=== PATIENT | female | born 1965 | race Caucasian/White ===

== ENCOUNTER → 2017-11-27 | Outpatient (CLI) | payer OTHER | END | disposition home or self-care (01) | LOC: RAH 12:50 | PROVIDERS: ATTEND Internal Medicine | DX: Z01.818 Encounter for other preprocedural examination (principal); I10 Essential (primary) hypertension; E78.5 Hyperlipidemia, unspecified; J98.6 Disorders of diaphragm | CPT/HCPCS: 71046 ==

== ENCOUNTER → 2018-02-16 | Outpatient (CLI) | payer OTHER | END | disposition home or self-care (01) | LOC: RAH 14:40 | PROVIDERS: ATTEND Internal Medicine | DX: N60.01 Solitary cyst of right breast (principal); N60.02 Solitary cyst of left breast | CPT/HCPCS: 77066 ==

== ENCOUNTER → 2018-06-30 | Outpatient (CLI) | payer OTHER | END | disposition home or self-care (01) | LOC: RAH 07:54 | PROVIDERS: ATTEND Internal Medicine | DX: K76.0 Fatty (change of) liver, not elsewhere classified (principal); R16.0 Hepatomegaly, not elsewhere classified | CPT/HCPCS: 76700 ==

== ENCOUNTER 2018-07-09 02:17 | Emergency (ER) | payer OTHER ==
[2018-07-09 03:22] LABS: BASOPHILS % (AUTO) 0.9 % (0.0-5.0); HEMATOCRIT 42.6 % (36-48); LYMPHOCYTES % (AUTO) 16.3 % (21.0-51.0); MEAN CORPUSCULAR HEMOGLOBIN 19.4 pg (27.0-33.0); MEAN CORPUSCULAR HGB CONC 31.5 g/dL (32.0-36.0); MEAN CORPUSCULAR VOLUME 61.4 fL (79-99); MONOCYTES % (AUTO) 3.9 % (3.0-13.0); NEUTROPHILS % (AUTO) 77.9 % (40.0-77.0); PLATELET COUNT (AUTO) 238 K/uL (130-400); RED BLOOD CELL COUNT(AUTO) 6.93 MIL/uL (4.00-5.50); RED CELL DISTRIBUTION WIDTH 18.7 % (11.0-15.5)
[2018-07-09 03:23] LABS: APPEARANCE,URINE CLEAR (CLEAR); BILIRUBIN,URINE NEGATIVE (NEGATIVE); COLOR,URINE YELLOW (YELLOW); GLUCOSE, URINE (UA) NEGATIVE (NEGATIVE); KETONES,URINE NEGATIVE (NEGATIVE); LEUKOCYTE ESTERASE ,URINE NEGATIVE (NEGATIVE); NITRATE,URINE NEGATIVE (NEGATIVE); OCCULT BLOOD,URINE NEGATIVE (NEGATIVE); PROTEIN,URINE 30 mg/dL (NEGATIVE); UROBILINOGEN,URINE 0.2 mg/dL (0.2-1.0)
[2018-07-09 03:27] LABS: BACTERIA,URINE None Seen /HPF (None Seen); CALCIUM OXALATE CRYSTALS,UR Few /LPF (None Seen); RBC,URINE None Seen /HPF (0-1); SQUAMOUS EPITHELIAL CELL,UR Few /HPF (0-2); WBC,URINE None Seen /HPF (0-1)
[2018-07-09 03:30] LABS: CREATININE 0.9 mg/dL (0.5-1.5); POTASSIUM 3.9 mmol/L (3.5-5.1)
[2018-07-09 03:34] LABS: ALBUMIN 4.1 g/dL (3.5-5.0); BILIRUBIN,TOTAL 0.7 mg/dL (0.2-1.0); TOTAL PROTEIN, SERUM 8.2 g/dL (6.0-8.3)
[2018-07-09 03:41] LABS: INR 1.02 (0.85-1.15); PARTIAL THROMBOPLASTIN TIME 37.7 SEC (26.3-35.5); PROTHROMBIN TIME 10.7 SEC (9.6-11.6)
[2018-07-09] MEDS ORDERED: KETOROLAC TROMETHAMINE 30MG/ML ONE (04:13)
== END 2018-07-09 06:14 | disposition home or self-care (01) ==
LOC: EDH 02:17
DX: K29.00 Acute gastritis without bleeding (principal); I10 Essential (primary) hypertension; E78.5 Hyperlipidemia, unspecified; F32.9 Major depressive disorder, single episode, unspecified; Z98.51 Tubal ligation status; Z98.890 Other specified postprocedural states; Z88.8 Allergy status to other drugs, medicaments and biological substances
CPT/HCPCS: 36415; 71045; 74176; 80053; 81001; 82150; 82550; 85025; 85610; 85730; 93005; 96374; 99285; J1885

== ENCOUNTER 2019-05-04 08:31 | Inpatient (IN) | payer OTHER ==
[~2019-05-04] VITALS: Ht 162.6 cm; Wt 83.6 kg
[2019-05-04] MEDS ORDERED: ONDANSETRON HCL 4 MG/2 ML VIAL ONE (08:48)
[2019-05-04] MEDS ORDERED: SODIUM CHLORIDE 0.9% 1000ML 1,000 ML IV ONE ×2 (08:49→12:28)
[2019-05-04 09:06] LABS: BASOPHILS % (AUTO) 0.3 % (0.0-5.0); EOSINOPHILS % (AUTO) 0.1 % (0.0-8.0); HEMATOCRIT 32.2 % (36-48); LYMPHOCYTES % (AUTO) 12.8 % (21.0-51.0); MEAN CORPUSCULAR HEMOGLOBIN 19.7 pg (27.0-33.0); MEAN CORPUSCULAR HGB CONC 31.4 g/dL (32.0-36.0); MEAN CORPUSCULAR VOLUME 62.8 fL (79-99); MONOCYTES % (AUTO) 4.6 % (3.0-13.0); NEUTROPHILS % (AUTO) 81.1 % (40.0-77.0); PLATELET COUNT (AUTO) 318 K/uL (130-400); RED BLOOD CELL COUNT(AUTO) 5.13 MIL/uL (4.00-5.50); RED CELL DISTRIBUTION WIDTH 16.7 % (11.0-15.5); WHITE BLOOD COUNT (AUTO) 18.7 K/uL (4.8-10.8)
[2019-05-04 09:12] LABS: CREATININE 1.6 mg/dL (0.5-1.5); POTASSIUM 3.8 mmol/L (3.5-5.1)
[2019-05-04 09:16] LABS: INR 1.03 (0.85-1.15); PARTIAL THROMBOPLASTIN TIME 30.7 SEC (26.3-35.5); PROTHROMBIN TIME 10.8 SEC (9.6-11.6)
[2019-05-04 09:21] LABS: ALBUMIN 3.1 g/dL (3.5-5.0); BILIRUBIN,TOTAL 0.3 mg/dL (0.2-1.0); TOTAL PROTEIN, SERUM 6.5 g/dL (6.0-8.3)
[2019-05-04] MEDS ORDERED: SODIUM CHLORIDE 0.9% 100 ML IV ONE ×2 (10:49→21:29)
[2019-05-04] MEDS ORDERED: OCTREOTIDE 1,250 MCG /NS 250ML (DRIP) IV SCH ×2 (11:00)
[2019-05-04] MEDS ORDERED: OCTREOTIDE ACETATE 100 MCG/ML AMP IVP SCH (11:00)
[2019-05-04 11:26] LABS: APPEARANCE,URINE Clear (CLEAR); BILIRUBIN,URINE Negative (NEGATIVE); COLOR,URINE Yellow (YELLOW); GLUCOSE, URINE (UA) Negative (NEGATIVE); KETONES,URINE Negative (NEGATIVE); LEUKOCYTE ESTERASE ,URINE Trace (NEGATIVE); NITRATE,URINE Negative (NEGATIVE); OCCULT BLOOD,URINE Negative (NEGATIVE); PROTEIN,URINE Negative (NEGATIVE); UROBILINOGEN,URINE 0.2 mg/dL (0.2-1.0)
[2019-05-04] MEDS ORDERED: OCTREOTIDE ACETATE 100 MCG/ML AMP ONE (12:02)
[2019-05-04 12:12] LABS: BACTERIA,URINE Rare /HPF (None Seen); RBC,URINE 0-1 /HPF (0-1); SQUAMOUS EPITHELIAL CELL,UR Rare /HPF (0-2); WBC,URINE 0-1 /HPF (0-1)
[2019-05-04] MEDS ORDERED: ZOSYN 3.375GM+NS 50ML 50 ML IV ONE (12:23)
[2019-05-04] MEDS ORDERED: ONDANSETRON HCL 4 MG/2 ML VIAL IV PRN (13:00)
[2019-05-04] MEDS ORDERED: NITROGLYCERIN 0.4 MG SL TAB SL PRN (13:00)
[2019-05-04] MEDS ORDERED: PANTOPRAZOLE SODIUM 80 MG in SODIUM CHLORIDE 0.9% 100 ML IV SCH (13:00)
[2019-05-04] MEDS ORDERED: LACTULOSE 20 GM/30 ML UDCUP PO PRN (13:00)
[2019-05-04] MEDS ORDERED: ACETAMINOPHEN 325 MG TAB PO PRN (13:00)
[2019-05-04] MEDS: ZOSYN 3.375GM+NS 50ML 50 ML IV SCH ×2 (21:00→23:00)
[2019-05-04 21:30] VITALS: BP 113/71
[2019-05-04] MEDS ORDERED: MORPHINE SULFATE 2 MG/ML 1ML SYG ONE (21:32)
[2019-05-04 23:00] VITALS: BP 110/63
[2019-05-04] MEDS: SODIUM CHLORIDE 0.9% 1000ML 1,000 ML IV SCH (23:00)
[2019-05-05] VITALS (13 sets, daily range): BP systolic 114–134; BP diastolic 55–77
[2019-05-05] MEDS ORDERED: MORPHINE SULFATE 2 MG/ML 1ML SYG ONE (02:02)
[2019-05-05 06:18] LABS: BASOPHILS % (AUTO) 0.5 % (0.0-5.0); EOSINOPHILS % (AUTO) 1.2 % (0.0-8.0); HEMATOCRIT 25.3 % (36-48); LYMPHOCYTES % (AUTO) 34.3 % (21.0-51.0); MEAN CORPUSCULAR HEMOGLOBIN 19.5 pg (27.0-33.0); MEAN CORPUSCULAR HGB CONC 29.6 g/dL (32.0-36.0); MEAN CORPUSCULAR VOLUME 65.7 fL (79-99); MONOCYTES % (AUTO) 5.1 % (3.0-13.0); NEUTROPHILS % (AUTO) 58.1 % (40.0-77.0); PLATELET COUNT (AUTO) 244 K/uL (130-400); RED BLOOD CELL COUNT(AUTO) 3.85 MIL/uL (4.00-5.50); RED CELL DISTRIBUTION WIDTH 17.2 % (11.0-15.5); WHITE BLOOD COUNT (AUTO) 9.5 K/uL (4.8-10.8)
[2019-05-05 06:39] LABS: ALBUMIN 2.8 g/dL (3.5-5.0); BILIRUBIN,TOTAL 0.4 mg/dL (0.2-1.0); CREATININE 1.1 mg/dL (0.5-1.5); POTASSIUM 3.4 mmol/L (3.5-5.1); TOTAL PROTEIN, SERUM 6.1 g/dL (6.0-8.3)
--- NOTE | 2019-05-05 06:39 | NUR ---
HOSPITALIST PAGED FOR HEMOGLOBIN
[2019-05-05] MEDS: ZOSYN 3.375GM+NS 50ML 50 ML IV SCH ×4 (06:54→21:01)
--- NOTE | 2019-05-05 07:27 | NUR ---
DR. FAGAN AWARE OF PT'S HEMOGLOBIN AND HEMATOCRIT
[2019-05-05] MEDS: SODIUM CHLORIDE 0.9% 1000ML 1,000 ML IV SCH ×2 (08:58→17:50)
[2019-05-05] MEDS: MORPHINE SULFATE 2 MG/ML 1ML SYG IVP PRN ×3 (10:24→23:52)
[2019-05-05 11:12] LABS: HEMATOCRIT 23.4 % (36-48)
[2019-05-05] MEDS ORDERED: SODIUM CHLORIDE 0.9% 250 ML IV ONE (11:22)
--- NOTE | 2019-05-05 13:01 | NUR ---
CM NOTE MEET WITH PATIENT IN ROOM. PER PATIENT, LIVES ALONE, IS INDEPENDENT WITH ADLS, NO PROVIDER OR COMMUNITY SERVICES, AND FEELS SAFE TO RETURN HOME. Addendum: 05/06/19 at 1303 by KIMBERLY RODAS RN CM Amended: Links added.
--- NOTE | 2019-05-05 13:15 | NUR ---
HGB NOTED AT 7.0. 1UNIT PRBC INFUSING. DENIES ANY DISTRESS, STABLE. TAKEN IN BED FOR SCHEDULED EGD.
[2019-05-05] MEDS ORDERED: PROPOFOL 10 MG/ML 20ML VIAL IV ONE (14:18)
[2019-05-05 17:08] LABS: HEMATOCRIT 28.3 % (36-48)
[2019-05-05] MEDS ORDERED: PANTOPRAZOLE SODIUM 40 MG TABLET.DR ONE (23:52)
[2019-05-06] VITALS (7 sets, daily range): BP systolic 126–159; BP diastolic 73–97
[2019-05-06 05:11] LABS: BASOPHILS % (AUTO) 0.6 % (0.0-5.0); EOSINOPHILS % (AUTO) 1.8 % (0.0-8.0); HEMATOCRIT 24.9 % (36-48); LYMPHOCYTES % (AUTO) 33.3 % (21.0-51.0); MEAN CORPUSCULAR HEMOGLOBIN 20.8 pg (27.0-33.0); MEAN CORPUSCULAR HGB CONC 30.9 g/dL (32.0-36.0); MEAN CORPUSCULAR VOLUME 67.1 fL (79-99); MONOCYTES % (AUTO) 5.6 % (3.0-13.0); NEUTROPHILS % (AUTO) 57.7 % (40.0-77.0); PLATELET COUNT (AUTO) 199 K/uL (130-400); RED BLOOD CELL COUNT(AUTO) 3.71 MIL/uL (4.00-5.50); RED CELL DISTRIBUTION WIDTH 17.7 % (11.0-15.5); WHITE BLOOD COUNT (AUTO) 7.1 K/uL (4.8-10.8)
[2019-05-06] MEDS: ZOSYN 3.375GM+NS 50ML 50 ML IV SCH ×3 (05:26→20:27)
[2019-05-06] MEDS: SODIUM CHLORIDE 0.9% 1000ML 1,000 ML IV SCH ×2 (05:36→14:26)
[2019-05-06 05:38] LABS: ALBUMIN 2.7 g/dL (3.5-5.0); BILIRUBIN,TOTAL 0.3 mg/dL (0.2-1.0); CREATININE 0.6 mg/dL (0.5-1.5); POTASSIUM 3.3 mmol/L (3.5-5.1); TOTAL PROTEIN, SERUM 5.8 g/dL (6.0-8.3)
[2019-05-06] MEDS: MORPHINE SULFATE 2 MG/ML 1ML SYG IVP PRN ×2 (06:21→14:33)
[2019-05-06] MEDS ORDERED: POTASSIUM CHLORIDE 20MEQ/100ML 100 ML IV PRN ×2 (09:15)
[2019-05-06] MEDS ORDERED: POTASSIUM CHLORIDE 10% ELIXIR 20 MEQ/15 ML UDCUP PO PRN (09:15)
[2019-05-06] MEDS ORDERED: MAGNESIUM 2GM PREMIX 50ML 50 ML IV PRN (09:15)
[2019-05-06] MEDS: POTASSIUM CHLORIDE 20 MEQ ERTAB PO PRN ×3 (09:18→20:33)
[2019-05-06] MEDS: PANTOPRAZOLE SODIUM 40 MG TABLET.DR PO SCH ×2 (09:18→20:28)
[2019-05-06 11:52] LABS: HEMATOCRIT 25.2 % (36-48)
[2019-05-06] MEDS ORDERED: PANTOPRAZOLE 40 MG/VIAL IV SCH (14:00)
[2019-05-06] MEDS: PANTOPRAZOLE SODIUM 80 MG in SODIUM CHLORIDE 0.9% 100 ML IV SCH ×2 (14:33→20:29)
[2019-05-06] MEDS ORDERED: ROPI1TAB13 PO (14:48)
[2019-05-06] MEDS ORDERED: ROPI2TAB7 PO (14:48)
[2019-05-06] MEDS ORDERED: ROPINIROLE HCL 1 MG TABLET PO PRN (15:00)
[2019-05-06] MEDS: ROPINIROLE HCL 1 MG TABLET PO SCH (20:28)
[2019-05-07 03:57] VITALS: BP 132/77
[2019-05-07] MEDS: SODIUM CHLORIDE 0.9% 1000ML 1,000 ML IV SCH ×2 (04:21→08:13)
[2019-05-07] MEDS: ZOSYN 3.375GM+NS 50ML 50 ML IV SCH ×3 (04:21→20:46)
[2019-05-07 05:38] LABS: BASOPHILS % (AUTO) 0.3 % (0.0-5.0); EOSINOPHILS % (AUTO) 2.4 % (0.0-8.0); HEMATOCRIT 28.5 % (36-48); LYMPHOCYTES % (AUTO) 29.9 % (21.0-51.0); MEAN CORPUSCULAR HEMOGLOBIN 20.5 pg (27.0-33.0); MEAN CORPUSCULAR HGB CONC 30.2 g/dL (32.0-36.0); MONOCYTES % (AUTO) 5.3 % (3.0-13.0); NEUTROPHILS % (AUTO) 61.5 % (40.0-77.0); PLATELET COUNT (AUTO) 245 K/uL (130-400); RED BLOOD CELL COUNT(AUTO) 4.19 MIL/uL (4.00-5.50); RED CELL DISTRIBUTION WIDTH 18.2 % (11.0-15.5); WHITE BLOOD COUNT (AUTO) 6.3 K/uL (4.8-10.8)
[2019-05-07 06:12] LABS: ALBUMIN 3.1 g/dL (3.5-5.0); BILIRUBIN,TOTAL 0.5 mg/dL (0.2-1.0); CREATININE 0.7 mg/dL (0.5-1.5); POTASSIUM 3.7 mmol/L (3.5-5.1); TOTAL PROTEIN, SERUM 6.6 g/dL (6.0-8.3)
[2019-05-07] MEDS: POTASSIUM CHLORIDE 20 MEQ ERTAB PO PRN (06:46)
[2019-05-07 07:15] VITALS: BP 145/96
[2019-05-07] MEDS: PANTOPRAZOLE SODIUM 40 MG TABLET.DR PO SCH ×2 (07:39→20:24)
[2019-05-07] MEDS: ROPINIROLE HCL 1 MG TABLET PO SCH ×2 (08:12→20:47)
[2019-05-07 10:46] VITALS: BP 128/61
--- NOTE | 2019-05-07 12:17 | NUR ---
DR DEAN CALLED PER MD- START PT ON CLEAR LIQUID DIET AND ADVANCE TOLERATED. PT VERBALIZED UNDERSTANDING
[2019-05-07 15:19] VITALS: BP 158/83
[2019-05-07 18:24] VITALS: BP 127/85
[2019-05-07] MEDS: METOPROLOL TARTRATE 25 MG TAB PO SCH (20:47)
[2019-05-07 23:00] VITALS: BP 147/78
[2019-05-08 03:00] VITALS: BP 128/80
[2019-05-08] MEDS: SODIUM CHLORIDE 0.9% 1000ML 1,000 ML IV SCH ×2 (03:42→06:41)
[2019-05-08] MEDS: PANTOPRAZOLE SODIUM 80 MG in SODIUM CHLORIDE 0.9% 100 ML IV SCH (03:47)
[2019-05-08] MEDS: ZOSYN 3.375GM+NS 50ML 50 ML IV SCH (03:47)
[2019-05-08 05:32] LABS: BASOPHILS % (AUTO) 0.3 % (0.0-5.0); EOSINOPHILS % (AUTO) 2.7 % (0.0-8.0); HEMATOCRIT 27.6 % (36-48); MEAN CORPUSCULAR HEMOGLOBIN 20.7 pg (27.0-33.0); MEAN CORPUSCULAR HGB CONC 30.8 g/dL (32.0-36.0); MEAN CORPUSCULAR VOLUME 67.2 fL (79-99); MONOCYTES % (AUTO) 5.8 % (3.0-13.0); NEUTROPHILS % (AUTO) 62.2 % (40.0-77.0); PLATELET COUNT (AUTO) 249 K/uL (130-400); RED BLOOD CELL COUNT(AUTO) 4.11 MIL/uL (4.00-5.50); RED CELL DISTRIBUTION WIDTH 18.5 % (11.0-15.5); WHITE BLOOD COUNT (AUTO) 7.4 K/uL (4.8-10.8)
[2019-05-08 06:02] LABS: ALBUMIN 2.9 g/dL (3.5-5.0); BILIRUBIN,TOTAL 0.4 mg/dL (0.2-1.0); TOTAL PROTEIN, SERUM 6.3 g/dL (6.0-8.3)
[2019-05-08 06:26] LABS: CREATININE 0.8 mg/dL (0.5-1.5)
[2019-05-08 07:30] VITALS: BP 140/87
[2019-05-08] MEDS: PANTOPRAZOLE SODIUM 40 MG TABLET.DR PO SCH (07:59)
[2019-05-08] MEDS: ROPINIROLE HCL 1 MG TABLET PO SCH (08:34)
[2019-05-08] MEDS: METOPROLOL TARTRATE 25 MG TAB PO SCH (08:35)
[2019-05-08] MEDS ORDERED: PANT40TA PO (09:06)
[2019-05-08] MEDS ORDERED: METO25 PO (09:06)
== END 2019-05-08 09:30 | disposition home or self-care (01) | DRG 378 ==
LOC: EDH 08:31 → EDHIP 12:58 → 3BH 21:31
PROVIDERS: ADMIT Internal Medicine; ATTEND Internal Medicine
PROC: 30233N1 Transfusion of Nonautologous Red Blood Cells into Peripheral Vein, Percutaneous Approach (ICD-10-PCS; principal; 2019-05-05)
PROC: 0DBA8ZX Excision of Jejunum, Via Natural or Artificial Opening Endoscopic, Diagnostic (ICD-10-PCS; 2019-05-05)
PROC: 0DB68ZX Excision of Stomach, Via Natural or Artificial Opening Endoscopic, Diagnostic (ICD-10-PCS; 2019-05-05)
DX: K28.4 Chronic or unspecified gastrojejunal ulcer with hemorrhage (principal); N17.9 Acute kidney failure, unspecified; D62 Acute posthemorrhagic anemia; G25.81 Restless legs syndrome; E66.9 Obesity, unspecified; E78.5 Hyperlipidemia, unspecified; F32.9 Major depressive disorder, single episode, unspecified; I10 Essential (primary) hypertension; K43.9 Ventral hernia without obstruction or gangrene; M47.815 Spondylosis without myelopathy or radiculopathy, thoracolumbar region; D72.829 Elevated white blood cell count, unspecified; K63.89 Other specified diseases of intestine; Z80.0 Family history of malignant neoplasm of digestive organs; Z82.3 Family history of stroke; Z82.49 Family history of ischemic heart disease and other diseases of the circulatory system; Z83.3 Family history of diabetes mellitus; Z98.84 Bariatric surgery status; Z88.8 Allergy status to other drugs, medicaments and biological substances; Z68.31 Body mass index [BMI] 31.0-31.9, adult
CPT/HCPCS: 36415; 36430; 43239; 74176; 80053; 81001; 82550; 83605; 83690; 83735; 84484; 85014; 85018; 85025; 85610; 85730; 86850; 86900; 86901; 86922; 87040; 88305; 93005; 99291; C9113; G0378; J2354; J2405; J2543; J2704; J7030; P9016

== ENCOUNTER → 2019-06-23 | Outpatient (CLI) | payer OTHER ==
[~2019-06-23] MED LIST: METO25 PO; PANT40TA PO; ROPI1TAB13 PO; ROPI2TAB7 PO
== END | disposition home or self-care (01) ==
LOC: RAH 14:43
PROVIDERS: ATTEND Internal Medicine
DX: M17.12 Unilateral primary osteoarthritis, left knee (principal); M25.462 Effusion, left knee; M79.89 Other specified soft tissue disorders
CPT/HCPCS: 73562

== ENCOUNTER 2019-11-16 05:33 | Inpatient (IN) | payer OTHER ==
[~2019-11-16] VITALS: Ht 162.6 cm; Wt 86.2 kg
[2019-11-16] VITALS (21 sets, daily range): BP systolic 140–165; BP diastolic 61–99
[2019-11-16] MEDS ORDERED: MORPHINE SULFATE 4 MG/1ML SYG ONE ×3 (06:10→11:37)
[2019-11-16] MEDS ORDERED: ONDANSETRON HCL 4 MG/2 ML VIAL ONE ×3 (06:10→12:53)
[2019-11-16 06:23] LABS: BASOPHILS % (AUTO) 0.6 % (0.0-5.0); EOSINOPHILS % (AUTO) 2.4 % (0.0-8.0); HEMATOCRIT 41.2 % (36-48); LYMPHOCYTES % (AUTO) 25.8 % (21.0-51.0); MEAN CORPUSCULAR HEMOGLOBIN 20.6 pg (27.0-33.0); MEAN CORPUSCULAR HGB CONC 31.1 g/dL (32.0-36.0); MEAN CORPUSCULAR VOLUME 66.5 fL (79-99); MONOCYTES % (AUTO) 5.5 % (3.0-13.0); NEUTROPHILS % (AUTO) 65.1 % (40.0-77.0); PLATELET COUNT (AUTO) 179 K/uL (130-400); RED CELL DISTRIBUTION WIDTH 17.4 % (11.0-15.5); WHITE BLOOD COUNT (AUTO) 6.7 K/uL (4.8-10.8)
[2019-11-16 06:37] LABS: CREATININE 0.8 mg/dL (0.5-1.5); POTASSIUM 3.5 mmol/L (3.5-5.1)
[2019-11-16 06:49] LABS: ALBUMIN 4.1 g/dL (3.5-5.0); BILIRUBIN,TOTAL 0.3 mg/dL (0.2-1.0); TOTAL PROTEIN, SERUM 7.7 g/dL (6.0-8.3)
[2019-11-16] MEDS ORDERED: LORAZEPAM 2 MG/ML 1 ML VIAL ONE (07:37)
[2019-11-16] MEDS ORDERED: SODIUM CHLORIDE 0.9% 500ML 500 ML IV ONE (08:07)
[2019-11-16] MEDS ORDERED: SODIUM CHLORIDE 0.9% 1000ML 1,000 ML IV ONE (11:36)
[2019-11-16] MEDS: SODIUM CHLORIDE 0.9% 1000ML 1,000 ML IV SCH ×5 (11:45→20:40)
[2019-11-16] MEDS ORDERED: LACTATED RINGERS 1000ML 1,000 ML IV ONE (12:42)
[2019-11-16] MEDS ORDERED: CEFAZOLIN SODIUM 1 GM VIAL ONE (12:42)
[2019-11-16] MEDS: CEFAZOLIN SODIUM 1 GM VIAL IVP SCH ×4 (12:45→20:48)
[2019-11-16] MEDS ORDERED: ACETAMINOPHEN 325 MG TAB PO PRN (12:45)
[2019-11-16] MEDS ORDERED: KETOROLAC TROMETHAMINE 15MG/ML IV PRN (12:45)
[2019-11-16] MEDS ORDERED: TRAMADOL HCL 50 MG TABLET PO PRN (12:45)
[2019-11-16] MEDS ORDERED: LIDOCAINE 2%-EPI 1:200,000 20 ML VIAL IJ ONE (12:53)
[2019-11-16] MEDS ORDERED: ROPIVACAINE 0.5% 5MG/ML 30ML IJ ONE (12:53)
[2019-11-16] MEDS ORDERED: LIDOCAINE PF 2% 5ML ABBOJECT ONE (12:53)
[2019-11-16] MEDS ORDERED: ROCURONIUM 10MG/1ML SYR 10 MG/ML ML ONE (12:54)
[2019-11-16] MEDS ORDERED: MIDAZOLAM HCL 1 MG/ML 2ML VIAL ONE (12:54)
[2019-11-16] MEDS ORDERED: PROPOFOL 10 MG/ML 20ML VIAL IV ONE (12:54)
[2019-11-16] MEDS ORDERED: FENTANYL CITRATE PF 50 MCG/1 ML 2ML VIAL ONE (12:54)
[2019-11-16] MEDS ORDERED: ROPINIROLE HCL 1 MG TABLET PO PRN (13:00)
[2019-11-16] MEDS ORDERED: EPHEDRINE SULFATE 50 MG/ML AMPULE ONE (14:00)
[2019-11-16] MEDS ORDERED: GLYCOPYRROLATE 1 MG/5 ML SYRINGE ONE (14:41)
[2019-11-16] MEDS ORDERED: NEOSTIGMINE 5MG/5ML SYR IV ONE (14:41)
[2019-11-16] MEDS ORDERED: DEXAMETHASONE SOD PHOSPHATE 10MG/ML 1ML VIAL ONE (14:41)
[2019-11-16] MEDS: ROPINIROLE HCL 1 MG TABLET PO SCH (20:40)
[2019-11-16] MEDS ORDERED: SERT100T12 PO (20:40)
[2019-11-16] MEDS: HYDROCODONE/ACETAMINOPHEN 5/325 MG TAB PO PRN (20:41)
[2019-11-16] MEDS: METOPROLOL TARTRATE 25 MG TAB PO SCH (20:41)
[2019-11-16] MEDS: MORPHINE SULFATE 2 MG/ML 1ML SYG IVP PRN (23:31)
[2019-11-17 00:11] VITALS: BP 117/71
[2019-11-17] MEDS: HYDROCODONE/ACETAMINOPHEN 5/325 MG TAB PO PRN ×4 (02:28→20:23)
[2019-11-17] MEDS: MORPHINE SULFATE 2 MG/ML 1ML SYG IVP PRN ×5 (04:20→22:36)
[2019-11-17] MEDS: CEFAZOLIN SODIUM 1 GM VIAL IVP SCH ×3 (04:21→08:48)
[2019-11-17] MEDS: SODIUM CHLORIDE 0.9% 1000ML 1,000 ML IV SCH ×2 (04:40→08:48)
[2019-11-17 05:22] VITALS: BP 152/84
[2019-11-17] MEDS: ROPINIROLE HCL 1 MG TABLET PO SCH ×2 (07:37→20:22)
[2019-11-17] MEDS: PANTOPRAZOLE SODIUM 40 MG TABLET.DR PO SCH (07:37)
[2019-11-17] MEDS: METOPROLOL TARTRATE 25 MG TAB PO SCH ×2 (07:39→20:23)
[2019-11-17 08:00] VITALS: BP 150/97
[2019-11-17 11:43] VITALS: BP 149/86
[2019-11-17 16:00] VITALS: BP 164/96
--- NOTE | 2019-11-17 16:28 | NUR ---
DCP CM met with pt discussed dc plans. Pt is independent prior to surgery, lives at home alone, disabled mother lives close by. Denies any equipments/services. Feels safe to go back home, verbalized she does not want to go to rehab and prefer to go back home. Pt verbalized she has 5 steps in front of her trailer, and 2 dogs, pt stated she might have to give 1 dog away. Informed pt might need assistance at home. Pt agreeable for [facility] and HH only, SRINIVAS signed. DC plan to home w/HH and DME. CM to cont to follow up. Autumn w/DAD made aware, will assess pt home setting once pt dc'd. Addendum: 11/17/19 at 1632 by RABIA FLETCHER LVN CM Amended: Links added.
[2019-11-18 00:17] VITALS: BP 167/78
[2019-11-18] MEDS: HYDROCODONE/ACETAMINOPHEN 5/325 MG TAB PO PRN ×3 (02:11→13:35)
[2019-11-18 04:00] VITALS: BP 146/81
--- NOTE | 2019-11-18 04:10 | NUR ---
ACTIVITY PATIENT SAYS SHE WILL TRY DANGLE AT THIS TIME AND FEELS SHE WILL BE ABLE TO DO. BRAKE TESTER ASSISTED TO DANGLE ON SIDE OF BED FOR A FEW MINUTES. TOLERATED WELL. Addendum: 11/18/19 at 0649 by JORDYN YODER RN RN WRONG PATIENT.
[2019-11-18 08:25] VITALS: BP 159/66
[2019-11-18] MEDS: MORPHINE SULFATE 2 MG/ML 1ML SYG IVP PRN (08:31)
--- NOTE | 2019-11-18 10:00 | NUR ---
CM Note: [facility] HH approval CM spoke to Destiny cordero/MELI BRODY, pt has approval. Primary nurse aware to call report once pt ready to DC. CM to cont to follow up.
--- NOTE | 2019-11-18 10:30 | NUR ---
CM Note[facility] standard walker no wheels CM spoke to Sandy cordero/Margareth, pt has approval for standard walker no wheels, shower chair will have to be private pt and will coordinate with pt, standard pending to be delivered at home today. Primary nurse aware. Safe to DC via private car. CM to cont to follow up.
[2019-11-18] MEDS: METOPROLOL TARTRATE 25 MG TAB PO SCH (10:35)
[2019-11-18] MEDS: PANTOPRAZOLE SODIUM 40 MG TABLET.DR PO SCH (10:35)
[2019-11-18] MEDS: ROPINIROLE HCL 1 MG TABLET PO SCH (10:35)
[2019-11-18 11:35] VITALS: BP 127/63
[2019-11-18] MEDS: SODIUM CHLORIDE 0.9% 1000ML 1,000 ML IV SCH (12:40)
--- NOTE | 2019-11-18 15:45 | NUR ---
DISCHARGE DISCHARGE TEACHING PROVIDED TO PATIENT REGARDING RX (TYLENOL #3, KEFLEX), SCHEDULED F/U APPT WITH DR. URBINA, RIGHT ANKLE DRESSING CHANGES TO BE DONE BY HOME HEALTH NURSE, AND ACTIVITY LEVEL AT DISCHARGE (NWB TO RLE WITH WALKER). REMOVED 18G IV FROM LEFT AC, CATHETER TIP INTACT.
--- NOTE | 2019-11-18 16:05 | NUR ---
A--PC HOME HEALTH REPORT GIVEN TO NURSE NIXON OF [facility] [phone]. INFORMED OF RX (TYLENOL #3, KEFLEX), ACTIVITY AT DISCHARGE, DRESSING CHANGES ORDERS TO BE DONE EVERY OTHER DAY. LAST DRESSING CHANGE DONE YESTERDAY 11/17/19 SO RIGHT ANKLE DRESSING CHANGE PENDING TO BE DONE TOMORROW.
== END 2019-11-18 16:15 | disposition home health service (06) | DRG 494 ==
LOC: EDH 05:33 → EDHIP 12:40 → 3AH 16:01
PROVIDERS: ADMIT Orthopaedic Surgery; ATTEND Orthopaedic Surgery
PROC: 2W3QX1Z Immobilization of Right Lower Leg using Splint (ICD-10-PCS; 2019-11-16)
PROC: 0QSJ04Z Reposition Right Fibula with Internal Fixation Device, Open Approach (ICD-10-PCS; principal; 2019-11-16 13:25)
PROC: 0QSG04Z Reposition Right Tibia with Internal Fixation Device, Open Approach (ICD-10-PCS; 2019-11-16 13:25)
PROC: 3E0T3BZ Introduction of Anesthetic Agent into Peripheral Nerves and Plexi, Percutaneous Approach (ICD-10-PCS; 2019-11-16 13:25)
DX: S82.851A Displaced trimalleolar fracture of right lower leg, initial encounter for closed fracture (principal); I10 Essential (primary) hypertension; Y93.89 Activity, other specified; Y92.89 Other specified places as the place of occurrence of the external cause; Y99.8 Other external cause status; Z91.040 Latex allergy status; Z88.8 Allergy status to other drugs, medicaments and biological substances
CPT/HCPCS: 36415; 73610; 80053; 84702; 85025; 93005; 97039; G0378; J0690; J1100; J2001; J2060; J2250; J2270; J2405; J2704; J2710; J2795; J3010; J3490; J7030; J7040; J7120

== ENCOUNTER → 2021-10-07 | Outpatient (CLI) | payer OTHER ==
[~2021-10-07] MED LIST changes: +SERT-440 PO
== END | disposition home or self-care (01) ==
LOC: RAH 10:37
PROVIDERS: ATTEND Internal Medicine
DX: Z12.31 Encounter for screening mammogram for malignant neoplasm of breast (principal)
CPT/HCPCS: 77067

== ENCOUNTER 2022-02-19 13:01 | Emergency (ER) | payer OTHER ==
[~2022-02-19] VITALS: Ht 157.5 cm; Wt 82.6 kg
[2022-02-19 13:03] VITALS: BP 166/88
[2022-02-19] MEDS ORDERED: KETOROLAC 30MG VIAL (30MG/ML) IM STA (13:16)
[2022-02-19] MEDS ORDERED: NAPR375T6 PO (14:59)
== END 2022-02-19 15:09 | disposition home or self-care (01) ==
LOC: EDH 13:01
DX: M25.562 Pain in left knee (principal); E78.00 Pure hypercholesterolemia, unspecified; F32.A Depression, unspecified; I10 Essential (primary) hypertension; Z79.1 Long term (current) use of non-steroidal anti-inflammatories (NSAID); Z79.899 Other long term (current) drug therapy; Z88.8 Allergy status to other drugs, medicaments and biological substances
CPT/HCPCS: 99283; 73562; 96372; J1885

== ENCOUNTER → 2022-04-02 | Outpatient (CLI) | payer OTHER ==
[~2022-04-02] MED LIST changes: +NAPR375T6 PO
== END | disposition home or self-care (01) ==
LOC: RAH 12:50
PROVIDERS: ATTEND Internal Medicine
DX: S83.92XA Sprain of unspecified site of left knee, initial encounter (principal); M25.562 Pain in left knee
CPT/HCPCS: 73721

== ENCOUNTER → 2023-07-23 | Outpatient (CLI) | payer OTHER ==
[~2023-07-23] MED LIST changes: -ROPI1TAB13 PO; +ROPI1TAB46 PO; +ROPI2TAB53 PO; -ROPI2TAB7 PO
== END | disposition home or self-care (01) ==
LOC: RAH 13:45
PROVIDERS: ATTEND Clinical Nurse Specialist Family Health
DX: Z12.31 Encounter for screening mammogram for malignant neoplasm of breast (principal)
CPT/HCPCS: 77067

== ENCOUNTER 2023-12-19 09:29 | Emergency (ER) | payer OTHER ==
[~2023-12-19] VITALS: Ht 162.6 cm; Wt 91.2 kg
[~2023-12-19 09:29] MED LIST changes: +NAPR-1505 PO; -NAPR375T6 PO
[2023-12-19] MEDS ORDERED: CYCL-309 PO (10:45)
[2023-12-19] MEDS ORDERED: IBUP-2077 PO (10:45)
[2023-12-19] MEDS ORDERED: METH4TAB3 PO (10:46)
[2023-12-19] MEDS: ketOROlac 60 MG VIAL (30MG/ML) IM ONE (10:46)
[2023-12-19 11:03] VITALS: BP 161/90; PULSE 78; RESP 18; TEMP 97.7; O2SAT 98
== END 2023-12-19 11:03 | disposition home or self-care (01) ==
LOC: EDH 09:29
DX: S22.31XA Fracture of one rib, right side, initial encounter for closed fracture (principal); I10 Essential (primary) hypertension; Z79.899 Other long term (current) drug therapy; Z88.8 Allergy status to other drugs, medicaments and biological substances; Z90.49 Acquired absence of other specified parts of digestive tract; Z91.040 Latex allergy status; Z98.890 Other specified postprocedural states; X58.XXXA Exposure to other specified factors, initial encounter; Y93.89 Activity, other specified; Y92.89 Other specified places as the place of occurrence of the external cause; Y99.8 Other external cause status
CPT/HCPCS: 99283; 71101; 96372; J1885

== ENCOUNTER 2024-12-05 05:16 | Inpatient (IN) | payer OTHER ==
[~2024-12-05] VITALS: Ht 157.5 cm; Wt 94.3 kg
[~2024-12-05 05:16] MED LIST changes: +CYCL-309 PO; +IBUP-2077 PO; +METH4TAB3 PO
[2024-12-05 05:35] LABS: IMMATURE GRANULOCYTE ABSOLUTE 0.08 K/uL (0-1); NUCLEATED RED BLOOD CELLS 0.0 % (0.0-0.19); PLATELET COUNT (AUTO) 215 K/uL (130-400); RED BLOOD CELL COUNT(AUTO) 6.90 MIL/uL (4.00-5.50); RED CELL DISTRIBUTION WIDTH 19.1 % (11.0-15.5); WHITE BLOOD COUNT (AUTO) 11.4 K/uL (4.8-10.8)
--- NOTE | 2024-12-05 05:39 | ERN ---
General Chief Complaint: Abdominal Pain Stated Complaint: EPIGASTRIC PAIN, N/V Time Seen by MD: 05:27 Source: patient History of Present Illness Initial Comments 59-year-old female with a history of a bleeding stomach ulcer requiring emergency gastric surgery comes in with red tinged emesis and strong epigastric pain and dizziness. She reports a couple of loose stools but now is constipated. No chest pain no shortness of breath. Allergies: Coded Allergies: bupropion (Unverified Allergy, Unknown, 07/09/18) latex (Unverified Allergy, Unknown, 11/16/19) lisinopril (Unverified Allergy, Unknown, 07/09/18) Home Meds Active Scripts Methylprednisolone (Medrol) 4 Mg Tab.ds.pk, 1 TAB PO AD for 6 Days, #21 TAB 0 Refills 6 on day 1 then reduce by one tablet daily until gone Prov:MARCUS VAN NP 12/19/23 Ibuprofen (Ibuprofen 800 mg Tab) 800 Mg Tab, 800 MG PO Q8H PRN for fever or pain, #30 TAB 0 Refills Prov:MARCUS VAN NP 12/19/23 Cyclobenzaprine HCl (Cyclobenzaprine HCl) 10 Mg Tablet, 1 TAB PO TID for muscle spasms for 10 Days, #30 TAB 0 Refills Prov:MARCUS VAN NP 12/19/23 Naproxen (Naproxen) 375 Mg Tablet.dr, 375 MG PO BID for 7 Days, #14 TAB Prov:HARITHA OH MD 02/19/22 Pantoprazole Sodium (Protonix) 40 Mg Tablet.dr, 40 MG PO DAILY for 30 Days, #30 TAB Prov:GRACIA RAMOS MD 05/08/19 Metoprolol Tartrate (Lopressor) 25 Mg Tab, 12.5 MG PO BID for 30 Days, #60 TAB Prov:GRACIA RAMOS MD 05/08/19 Reported Medications Sertraline HCl (Sertraline HCl) 100 Mg Tablet, 1 TAB PO DAILY 11/16/19 Ropinirole HCl (Ropinirole HCl) 1 Mg Tablet, 1 MG PO DAILY PRN for RESTLESSNESS, TAB 05/06/19 Ropinirole HCl (Ropinirole HCl) 2 Mg Tablet, 2 MG PO BID, TAB 05/06/19 Past Medical History Past Medical History: Depression, GERD, High Cholesterol, Hypertension Past Surgical History: Appendectomy, Other Surgical History Other: GASTROPLASTY Social History Social History: Negative Female( History) History: Not Applicable Constitutional: (-) chills, (-) diaphoresis, (-) fever, (-) malaise, (-) weakness, (-) other documentation EENTM: (-) eye pain, (-) blurred vision, (-) tearing, (-) double vision, (-) ear pain, (-) ear discharge, (-) nose pain, (-) nose congestion, (-) throat pain, (-) Throat swelling, (-) mouth pain, (-) tooth pain, (-) mouth swelling, (-) other documentation Respiratory: (-) cough, (-) orthopnea, (-) short of breath, (-) stridor, (-) wheezing, (-) other documentation Cardiovascular: (-) chest pain, (-) edema, (-) palpitations, (-) syncope, (-) dyspnea on exertion, (-) other documentation Gastrointestinal/Abdominal: (+) nausea, (+) vomiting, (+) abdominal pain Genitourinary: (-) vaginal discharge, (-) vaginal bleeding, (-) dysuria, (-) frequency, (-) hematuria, (-) pain, (-) other documentation Musculoskeletal: (-) Neck pain, (-) back pain, (-) Flank Pain, (-) joint pain, (-) joint swelling, (-) muscle pain, (-) muscle stiffness, (-) gout, (-) other documentation Physical Exam General Appearance: (+) mild distress Orientation: (+) alert, (+) oriented x 3 Head/Face Trauma: No Eye: bilateral eye normal inspection, bilateral eye PERRL, bilateral eye EOMI Ear, Nose, Throat: (+) hearing grossly normal, (+) normal ENT inspection, (+) moist mucous membraine Neck: (+) normal inspection, (+) supple, (+) full range of motion, (+) no JVD Respiratory: (+) chest non-tender, (+) lungs clear, (+) well ventilated Heart: (+) regular, (+) no gallop Vascular: (+) no edema, (+) normal peripheral pulse Gastrointestinal: (+) soft, (+) distended, (+) tender, (+) bowel sound absent Results Laboratory and Microbiology Lab and Micro Result Laboratory Tests Test 12/05/24 05:29 12/05/24 06:56 White Blood Count 11.4 K/uL (4.8-10.8) H Red Blood Count 6.90 MIL/uL (4.00-5.50) H Hemoglobin 13.9 g/dL (12.0-16.0) Hematocrit 44.6 % (36-48) Mean Corpuscular Volume 64.6 fL (79-99) L Mean Corpuscular Hemoglobin 20.1 pg (27.0-33.0) L Mean Corpuscular Hemoglobin Concent 31.2 g/dL (32.0-36.0) L Red Cell Distribution Width 19.1 % (11.0-15.5) H Platelet Count 215 K/uL (130-400) Mean Platelet Volume fL (7.5-10.5) Immature Granulocyte % (Auto) 0.7 % (0-1) Neutrophils (%) (Auto) 79.8 % (40.0-77.0) H Lymphocytes (%) (Auto) 13.3 % (21.0-51.0) L Monocytes (%) (Auto) 5.1 % (3.0-13.0) Eosinophils (%) (Auto) 0.7 % (0.0-8.0) Basophils (%) (Auto) 0.4 % (0.0-5.0) Neutrophils # (Auto) 9.1 K/uL (1.8-7.7) H Lymphocytes # (Auto) 1.5 K/uL (1.0-4.8) Monocytes # (Auto) 0.6 K/uL (0.1-1.0) Eosinophils # (Auto) 0.08 K/uL (0.00-0.70) Basophils # (Auto) 0.05 K/uL (0.00-0.20) Absolute Immature Granulocyte (auto 0.08 K/uL (0-1) Nucleated Red Blood Cells 0.0 % (0.0-0.19) Red Blood Cell Morphology See comments Sodium Level 138 mmol/L (136-145) Potassium Level 4.3 mmol/L (3.5-5.1) Chloride Level 101 mmol/L (101-111) Carbon Dioxide Level 24 mmol/L (21-32) Blood Urea Nitrogen 19 mg/dL (7-18) H Creatinine 1.0 mg/dL (0.5-1.0) Glomerular Filtration Rate Calc 64 mL/min (>90) Random Glucose 140 mg/dL (70-105) H Total Calcium 9.4 mg/dL (8.5-10.1) Troponin I High Sensitivity 5 ng/L (4-50) Lipase 33 U/L (16-77) Urine Color YELLOW (YELLOW) Urine Appearance CLEAR (CLEAR) Urine pH 7.0 (5.0-8.0) Urine Specific [place] 1.010 (1.001-1.031) Urine Protein NEGATIVE mg/dL (NEGATIVE) Urine Glucose (UA) NEGATIVE mg/dL (NEGATIVE) Urine Ketones NEGATIVE mg/dL (NEGATIVE) Urine Occult Blood NEGATIVE (NEGATIVE) Urine Nitrate NEGATIVE (NEGATIVE) Urine Bilirubin NEGATIVE mg/dL (NEGATIVE) Urine Urobilinogen 0.2 mg/dL (0.2-1.0) Urine Leukocyte Esterase NEGATIVE Samantha/uL MDM MDM: Differential diagnosis: Gastric or duodenal ulcer, gastroenteritis, dehydration, GERD, small-bowel obstruction, acute IL, Rationale: Tests considered and ordered secondary to shared decision making include: Previous outside records reviewed: Old ER visits. Risk of complication and/or morbidity or mortality of patient management: None Medications-Per medication reconciliation Need for hospitalization: Patient does meet criteria for hospitalization. Need for emergency major/minor surgery: No There are no social concerns with this patient. Prescription drug management Prescriptions will include symptomatic care Patient's prior external medical records from other ER visits were reviewed by me as indicated. Prior testing and results from previous visits were reviewed. Prior tests were taken into account with medical decision making and resource utilization, independent historian/historians were used to obtain complete medical history. I independently interpreted the test that were performed, results were reviewed by me and considered findings on radiology if ordered. Patient's chemistry panel and CBC are relatively normal. KUB shows no free air in diaphragms. There is a paucity of air in the small bowel and hints of constipation in the large bowel. Patient's pain has now moved down distally into her lower abdomen where she has intermittent cramping pain. We will get a CT scan with the IV and oral contrast rule out small-bowel obstruction. Patient handed off at shift change CT scan confirms small bowel obstruction admitting to Medicine with surgery consult. ED Course Orders Procedure Category Date Status Time Vital Signs Per CPOE 12/05/24 Transmitted Routine 05:20 Saline Lock Iv CPOE 12/05/24 Transmitted 05:20 Cbc With Differential LAB 12/05/24 Complete 05:20 Lipase LAB 12/05/24 Complete 05:20 Urinalysis Profile LAB 12/05/24 Complete 05:20 Basic Metabolic Panel LAB 12/05/24 Complete 05:20 12 Lead Ekg Tracing- EKG 12/05/24 Complete Technical 05:23 Troponin I High LAB 12/05/24 Complete Sensitivity 05:23 Lactated Ringers PHA 12/05/24 Complete 1000ml (Lactated 05:34 Famotidine 20mg Vial PHA 12/05/24 Complete (Pepcid 20mg Vial) 06:00 Ondansetron 4mg Inj PHA 12/05/24 Complete (Zofran 4mg Inj) 06:00 Lidocaine Hcl 2% PHA 12/05/24 Complete Viscous (Lidocaine Hcl 06:00 Mag/Alum/Simeth 30ml PHA 12/05/24 Complete (Maalox Plus 30ml) 06:00 Dicyclomine Hcl PHA 12/05/24 Complete (Bentyl 10mg/5ml 06:00 Abd 1vw RAD 12/05/24 Resulted 05:42 Foot Comp 3+Vws Rt RAD 12/05/24 Resulted 07:09 Morphine 4mg Syg PHA 12/05/24 Complete (Morphine 4mg Syg) 07:30 Diatr PHA 12/05/24 Complete Meglu/Diatrizoate 07:20 Ct Abd/Pel Wo Con CT 12/05/24 Resulted Renal/Appy 07:23 Hydromorphone 0.5mg PHA 12/05/24 Complete Syg (Dilaudid 0.5mg 08:30 Hydromorphone 1 Mg PHA 12/05/24 Complete Inj (Dilaudid 1mg Inj 08:06 Current Medications Medications (Trade) Dose Ordered Sig/Musa Route PRN Reason Start Time Stop Time Status Last Admin Dose Admin Al Hydroxide/Mg Hydroxide (MAALox PLUS 30ML) 30 ml ONCE ONCE PO 12/05/24 06:00 12/05/24 06:01 DC 12/05/24 06:14 Diatrizoate Meglum/ Diatrizoate Sod (Gastrografin 66-10 Solution) 30 ml STK-MED ONCE .ROUTE 12/05/24 07:20 12/05/24 07:20 DC Dicyclomine HCl (Bentyl 10mg/5ml Syrup) 10 mg ONCE ONCE PO 12/05/24 06:00 12/05/24 06:01 DC 12/05/24 06:14 Famotidine (Pepcid 20mg Vial) 20 mg ONCE ONCE IV 12/05/24 06:00 12/05/24 06:01 DC 12/05/24 05:53 Hydromorphone HCl (DiLAUDid 0.5MG INJ) 0.5 mg ONCE ONCE IVP 12/05/24 08:30 12/05/24 08:09 DC Hydromorphone HCl (DiLAUDid 1MG INJ) 1 mg ONCE STAT IVP 12/05/24 08:06 12/05/24 08:09 DC 12/05/24 08:17 Lactated Ringer's (Lactated Ringers 1000ml) 1,000 ml BOLUS STAT IV 12/05/24 05:34 12/05/24 05:40 DC 12/05/24 05:53 Lidocaine HCl (Lidocaine HCl 2% Viscous) 10 ml ONCE ONCE PO 12/05/24 06:00 12/05/24 06:01 DC 12/05/24 06:14 Morphine Sulfate (morPHINE 4MG SYG) 2 mg ONCE ONCE IVP 12/05/24 07:30 12/05/24 07:31 DC 12/05/24 07:23 Ondansetron HCl (zoFRAN 4MG INJ) 4 mg ONCE ONCE IVP 12/05/24 06:00 12/05/24 06:01 DC 12/05/24 05:53 Vital Signs Date Time Temp Pulse Resp B/P (MAP) Pulse Ox O2 Delivery O2 Flow Rate FiO2 12/05/24 08:19 98.6 80 16 181/98 96 Room Air* 0 21 12/05/24 07:17 98.6 85 14 176/98 95 Room Air* 0 21 12/05/24 05:32 98.6 91 18 140/81 95 Room Air* 0 21 12/05/24 05:18 98.8 90 22 140/81 96 Room Air DX & DISP Disposition: Inpatient Departure Impression: Primary Impression: SBO (small bowel obstruction) Condition: Stable Referrals: YVONNE CHANCE MD (PCP) EMBER BARRON MD Dec 05, 2024 05:39 PARDEEP MARTINEZ MD Dec 05, 2024 10:13
[2024-12-05 05:47] LABS: CREATININE 1.0 mg/dL (0.5-1.0); GLOMERULAR FILTR. RATE CALC 64.0 mL/min (>90); GLUCOSE,RANDOM 140.0 mg/dL (70-105); SODIUM SERUM 138.0 mmol/L (136-145); UREA NITROGEN, BLOOD 19.0 mg/dL (7-18)
[2024-12-05] MEDS: LACTATED RINGERS 1000ML IV STA (05:53)
[2024-12-05] MEDS: FAMOTIDINE 20MG VIAL IV ONE (05:53)
[2024-12-05] MEDS: MAG/ALUM/SIMETH 30 ML UDCUP PO ONE (06:14)
[2024-12-05] MEDS: LIDOCAINE HCL 2% VISCOUS 15 ML UDCUP PO ONE (06:14)
[2024-12-05] MEDS: DICYCLOMINE HCL 10 MG/5 ML ML PO ONE (06:14)
--- NOTE | 2024-12-05 06:21 | EKG ---
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
--- NOTE | 2024-12-05 06:49 | HMCIMG ---
EXAM: CR Abdomen, 1 view. CLINICAL HISTORY: Emesis COMPARISON: Prior CT abdomen and pelvis dated May 04, 2019 FINDINGS: Mildly elevated right hemidiaphragm, probable right diaphragmatic eventration. Non obstructed nonspecific bowel gas pattern. No free air is evident. No abnormal calcification. No aggressive appearing osseous lesion. IMPRESSION: No acute process. No obstructive bowel gas pattern. /[place]
[2024-12-05 07:16] LABS: APPEARANCE,URINE CLEAR (CLEAR); GLUCOSE, URINE (UA) NEGATIVE (NEGATIVE); LEUKOCYTE ESTERASE ,URINE NEGATIVE Leu/uL (NEGATIVE); NITRATE,URINE NEGATIVE (NEGATIVE); OCCULT BLOOD,URINE NEGATIVE (NEGATIVE)
[2024-12-05 07:20] LABS: ADD UA MICROSCOPIC NO
[2024-12-05] MEDS ORDERED: DIATR MEGLU/DIATRIZOATE SODIUM 30 ML BOTTLE ONE (07:20)
--- NOTE | 2024-12-05 07:39 | HMCIMG ---
EXAM: CR right Foot, 3 views. CLINICAL HISTORY: Trauma rule out fracture. COMPARISON: None provided. FINDINGS: Faint transverse lucency at the base of the fifth metatarsal is consistent with a nondisplaced fracture with mild associated soft tissue edema. Mild osteopenia. A compression plate and screws in the distal metaphyseal end of the fibula and a cancellous screw in the medial malleolus of the tibia for prior fracture fixation. Mild degenerative changes in the tibiotalar, talofibular, intertarsal, tarsometatarsal, metatarsophalangeal, and interphalangeal joints. No aggressive appearing osseous lesion. IMPRESSION: Faint transverse lucency at the base of the fifth metatarsal is consistent with a nondisplaced fracture with mild associated soft tissue edema. Mild osteopenia. A compression plate and screws in the distal metaphyseal end of the fibula and a cancellous screw in the medial malleolus of the tibia for prior fracture fixation. Mild degenerative changes in the tibiotalar, talofibular, intertarsal, tarsometatarsal, metatarsophalangeal, and interphalangeal joints. /[place]
--- NOTE | 2024-12-05 09:23 | HMCIMG ---
EXAM: CT Abdomen and Pelvis Without IV contrast CLINICAL HISTORY: diffuse abdominal pain TECHNIQUE: Axial computed tomography images of the abdomen and pelvis without intravenous contrast. CONTRAST: No IV contrast. COMPARISON: None provided. FINDINGS: LUNG BASES: Bibasilar subsegmental atelectasis. LIVER: Unremarkable. GALLBLADDER AND BILE DUCTS: Cholelithiasis. Distended gallbladder. PANCREAS: Unremarkable. SPLEEN: Unremarkable. ADRENAL GLANDS: Unremarkable. KIDNEYS, URETERS, AND BLADDER: The kidneys appear within normal limits. There is no hydronephrosis or hydroureter. No urinary calculi are seen. STOMACH AND BOWEL: There are postoperative changes of the stomach. Multiple ventral wall hernias containing fat. One of the hernias contains the antimesenteric surface of the transverse colon. There is a small bowel obstruction with a transition point at the level of an anastomosis within the left abdomen. APPENDIX: No evidence of acute appendicitis on CT examination. PERITONEUM: No free fluid. No free air. LYMPH NODES: No lymphadenopathy is evident. REPRODUCTIVE: Unremarkable as visualized. VASCULATURE: Aortic atherosclerosis noted. BONES: Moderate wedge compression fracture of T10. Severe loss of disc height at L3/L4. IMPRESSION: 1. Small bowel obstruction with transition point at left abdominal anastomosis. 2. Multiple ventral wall hernias, including one containing transverse colon. 3. Cholelithiasis with gallbladder distension. 4. Moderate T10 wedge compression fracture. 5. Severe L3/L4 disc height loss. 6. Postoperative changes of the stomach. 7. Bibasilar subsegmental atelectasis. 8. Aortic atherosclerosis. /[place]
[2024-12-05] MEDS ORDERED: NITROGLYCERIN 0.4 MG SL TAB SL PRN (11:30)
[2024-12-05] MEDS ORDERED: LACTULOSE 20 GM/30 ML UDCUP PO PRN (11:30)
[2024-12-05] MEDS ORDERED: GLUCAGON 1MG KIT 1 MG ML IM PRN (11:30)
[2024-12-05] MEDS ORDERED: FAMOTIDINE 20MG VIAL IV PRN (11:30)
[2024-12-05] MEDS ORDERED: MAG/ALUM/SIMETH 30 ML UDCUP PO PRN (11:30)
[2024-12-05] MEDS ORDERED: PoTASSium chloRIDE 20MEQ ER 20 MEQ ERTAB PO PRN (11:30)
[2024-12-05] MEDS ORDERED: PoTASSium chl 10% ELIXIR 20MEQ 20 MEQ/15 ML UDCUP PO PRN (11:30)
[2024-12-05] MEDS ORDERED: DEXTROSE 50%-WATER 50 ML DISP.SYRIN IV PRN (11:30)
[2024-12-05] MEDS ORDERED: guaiFENesin-DM 200/20MG 10ML PO PRN (11:30)
[2024-12-05] MEDS ORDERED: MAGNESIUM 2GM PREMIX 50ML 50 ML IV PRN (11:30)
--- NOTE | 2024-12-05 12:43 | HP ---
[facility] HISTORY AND PHYSICAL Date of Service: Dec 05, 2024 Time of Service: 12:20 PCP:Dr Sabrina Schmitt Admitting: Dr Butt, Allergies: Bupropion, latex, lisinopril HISTORY OF PRESENT ILLNESS: [ Patient is 59 years old female with a past medical history of right ankle fracture dislocation s/p reduction and splinting 2019, hypertension, hyperlipidemia, gastritis, depression, anxiety, gastric bypass with a revision, tubal ligation tonsillectomy and multiple cosmetic skin removal, who came to emergency department with a complaint of nausea, vomiting and severe abdominal pain. Patient stated that yesterday at about 2:00 p.m. she had a dinner which include Lantus, potatoes, califlowe and beeg. After that she has been failing really well until the moment around midnight when she woke up feeling " off ". Patient was also complaining of anxiety severe stomach pain sweatiness and she was not able to sleep. Urinary morning she also had persistent nausea and vomiting. The abdominal pain became very dull, strong that she was not able to so she decided to come to the hospital for further evaluation/recommendation. Most recent vital signs temperature 98.6 pulse 80 respirations 16 blood pressure 181/98 patient is on room air satting 96%. WBC 11.4 hemoglobin 13.9 hematocrit 44.6 platelets 215. UA negative for leukocytosis. Sodium 138 potassium 4.3 CO2 24 BUN 19 creatinine 1.0 GFR was 64 random glucose 140 calcium 9.4 troponin negative x1 lipase 33. X-ray abdomen negative. Foot x-ray showed nondisplaced fracture 5th metatarsal with a soft tissue edema. Mild osteopenia. CT abdomen/pelvis shows small bowel obstructio with transition point left abdominal anastomosis. Multiple ventral hernias. Cholelithiasis. Gallbladder distended. Moderate T 10 wedge co mpression fracture. Severe L3/L4 disc height loss. Atelectasis. 2D echo pending During evaluation nurse practitioner explained to the patient results of CT abdomen/pelvis regarding the compression fracture and severe disc height loss. Patient stated that she has been having problems with her back since she was at age of 13. She does not want to have any senior management consultant to be consulted for above- stated problem. Patient will be admitted under hospitalist care for further evaluation/recommendation. Surgeon we will be consulted. ] REVIEW OF SYSTEMS CONSTITUTIONAL: Denies fevers, chills, or night sweats. No unintentional weight loss reported. NEUROLOGICAL: Denies headache, amaurosis fugax, motor weakness, sensory deficit, vertigo/spinning sensation, gait abnormalities, or tremors. ENT: No hearing loss, otalgia, otorrhea, rhinitis, rhinorrhea, hoarseness, or sore throat. CARDIOVASCULAR: Denies any exertional angina, dyspnea on exertion, orthopnea, paroxysmal nocturnal dyspnea, palpitations, life-threatening arrhythmias, claudication. PULMONARY: Denies any shortness of breath, cough, phlegm/sputum, hemoptysis, pleuritic chest pain. SLEEP: Denies morning headaches, daytime somnolence or napping. Denies difficulty falling asleep, staying asleep, waking from sleep. Denies knowledge of snoring. GASTROINTESTINAL: Denies any type of dysphagia to either liquids or solids. Denies pyrosis, early satiety, diarrhea, constipation, or changes in stool consistency or caliber. Denies coffee-ground emesis, hematemesis, hematochezia, or melanotic stools. Severe abdominal pain with nausea and vomiting GENITOURINARY: Denies frequency, urgency, nocturia, hematuria or incontinence (Storage/Irritative symptoms.) Low urinary stream, straining to void, urinary intermittency or hesitancy, splitting of the voiding stream, terminal dribbling. ENDOCRINOLOGIC: Denies polyuria, polydipsia, polyphagia or heat/cold intolerances. HEMATOLOGIC: Denies thrombophilia/previous clots, or coagulopathy/bleeding disorders. ONCOLOGIC: Denies personal history of malignancy. DERMATOLOGIC: Denies rashes or pruritus. PSYCHIATRIC: Denies any suicidal or homicidal ideation. Denies hallucinations. PAST MEDICAL HISTORY: [ Hypertension, hyperlipidemia, gastritis, depression, anxiety ] PAST SURGICAL HISTORY: [ Gastric bypass, revision of gastric bypass, tubal ligation, cosmetic skin removal multiple, tonsillectomy ] PAST SOCIAL HISTORY: [ Patient denies smoking. Patient denies any drug illicit. Patient stated that she drinks occasionally] FAMILY HISTORY: [Patient is independent. Patient lives at home alone ] Coded Allergies: bupropion (Unverified Allergy, Unknown, 07/09/18) latex (Unverified Allergy, Unknown, 11/16/19) lisinopril (Unverified Allergy, Unknown, 5/10/19) PHYSICAL EXAM GENERAL APPEARANCE: The patient is awake, alert, and oriented, in no acute cardiopulmonary distress. NEUROLOGICAL: Cranial nerves II-XII grossly intact. Motor is 5/5 in bilateral upper and lower extremities proximal to distal. No sensory deficits. HEENT: Face is symmetric. Pupils are equal and reactive. Extraocular movements are intact. NECK: Supple. No JVD. No thyromegaly. No submental, submandibular, pre- /postauricular, occipital or supraclavicular lymphadenopathy. CHEST: Normal chest expansion. No Telemetry. LUNGS: Absence of any rales, rhonchi or any wheezing. CARDIOVASCULAR: Regular. S1 and S2 normal. No appreciable rubs, murmurs or gallops. ABDOMEN: Soft, nontender, and nondistended. There is no rebound, voluntary guarding, or rigidity. : Deferred. No Salazar. EXTREMITIES: Non-edematous and not cyanotic. No clubbing. Good capillary refill. SKIN: No skin breakdown. Vital Sign (Last 24 Hours) 12/05/24 08:19 Temp 98.6 Pulse 80 Resp 16 B/P (MAP) 181/98 Pulse Ox 96 O2 Delivery Room Air* O2 Flow Rate 0 FiO2 21 LABS: Laboratory: Test 12/05/24 06:56 12/05/24 05:29 Range/Units Urine Color YELLOW YELLOW Urine Appearance CLEAR CLEAR Urine pH 7.0 5.0-8.0 Urine Specific [place] 1.010 1.001-1.031 Urine Protein NEGATIVE NEGATIVE mg/dL Urine Glucose (UA) NEGATIVE NEGATIVE mg/dL Urine Ketones NEGATIVE NEGATIVE mg/dL Urine Occult Blood NEGATIVE NEGATIVE Urine Nitrate NEGATIVE NEGATIVE Urine Bilirubin NEGATIVE NEGATIVE mg/dL Urine Urobilinogen 0.2 0.2-1.0 mg/dL Urine Leukocyte Esterase NEGATIVE NEGATIVE Samantha/uL White Blood Count 11.4 H 4.8-10.8 K/uL Red Blood Count 6.90 H 4.00-5.50 MIL/uL Hemoglobin 13.9 12.0-16.0 g/dL Hematocrit 44.6 36-48 % Mean Corpuscular Volume 64.6 L 79-99 fL Mean Corpuscular Hemoglobin 20.1 L 27.0-33.0 pg Mean Corpuscular Hemoglobin Concent 31.2 L 32.0-36.0 g/dL Red Cell Distribution Width 19.1 H 11.0-15.5 % Platelet Count 215 130-400 K/uL Mean Platelet Volume 7.5-10.5 fL Immature Granulocyte % (Auto) 0.7 0-1 % Neutrophils (%) (Auto) 79.8 H 40.0-77.0 % Lymphocytes (%) (Auto) 13.3 L 21.0-51.0 % Monocytes (%) (Auto) 5.1 3.0-13.0 % Eosinophils (%) (Auto) 0.7 0.0-8.0 % Basophils (%) (Auto) 0.4 0.0-5.0 % Neutrophils # (Auto) 9.1 H 1.8-7.7 K/uL Lymphocytes # (Auto) 1.5 1.0-4.8 K/uL Monocytes # (Auto) 0.6 0.1-1.0 K/uL Eosinophils # (Auto) 0.08 0.00-0.70 K/uL Basophils # (Auto) 0.05 0.00-0.20 K/uL Absolute Immature Granulocyte (auto 0.08 0-1 K/uL Nucleated Red Blood Cells 0.0 0.0-0.19 % Red Blood Cell Morphology See comments Sodium Level 138 136-145 mmol/L Potassium Level 4.3 3.5-5.1 mmol/L Chloride Level 101 101-111 mmol/L Carbon Dioxide Level 24 21-32 mmol/L Blood Urea Nitrogen 19 H 7-18 mg/dL Creatinine 1.0 0.5-1.0 mg/dL Glomerular Filtration Rate Calc 64 >90 mL/min Random Glucose 140 H 70-105 mg/dL Total Calcium 9.4 8.5-10.1 mg/dL Troponin I High Sensitivity 5 4-50 ng/L Lipase 33 16-77 U/L Current Medications Medications (Trade) Dose Ordered Sig/Musa Route PRN Reason Start Time Stop Time Status Last Admin Dose Admin Acetaminophen (TYLenol 325MG TAB) 650 mg Q4H PRN PO MILD PAIN (1-3) 12/05/24 11:30 01/04/25 11:29 Acetaminophen (TYLenol 325MG TAB) 650 mg Q6H PRN PO MILD PAIN (1-3) 12/05/24 11:30 12/05/24 11:31 DC Acetaminophen (TYLenol 325MG TAB) 650 mg Q6H PRN PO TEMPERATURE GREATER THAN 101.5 12/05/24 11:30 01/04/25 11:29 Al Hydroxide/Mg Hydroxide (MAALox PLUS 30ML) 30 ml Q6H PRN PO INDIGESTION 12/05/24 11:30 01/04/25 11:29 Dextrose (D50w) 50 ml AD PRN IV HYPOGLYCEMIA PROTOCOL 12/05/24 11:30 01/04/25 11:29 Diphenhydramine HCl (BENAdryl INJ) 25 mg Q6H PRN IV SEVERE ITCHING/RASH 12/05/24 11:30 01/04/25 11:29 Famotidine (Pepcid 20mg Vial) 20 mg BID IV 12/05/24 21:00 01/04/25 20:59 Famotidine (Pepcid 20mg Vial) 20 mg BID PRN IV NAUSEA/VOMITING 12/05/24 11:30 12/05/24 11:31 DC Glucagon (Glucagon 1mg Kit) 1 mg AD PRN IM HYPOGLYCEMIA PROTOCOL 12/05/24 11:30 01/04/25 11:29 Guaifenesin/ Dextromethorphan (RobiTUSSin DM 200/20MG 10ML) 10 ml Q4H PRN PO COUGH 12/05/24 11:30 01/04/25 11:29 Heparin Sodium (Porcine) (HEParin 5,000 UNIT VIAL) 5,000 unit BID SQ 12/05/24 21:00 01/04/25 20:59 Hydralazine HCl (APRESOLine 20MG INJ) 10 mg Q6H PRN IV For:SBP above 160;DBP above 90 12/05/24 11:30 01/04/25 11:29 Hydromorphone HCl (DiLAUDid 1MG INJ) 1 mg ONCE STAT IVP 12/05/24 08:06 12/05/24 08:09 DC 12/05/24 08:17 1 MG Ibuprofen (moTRIN) 800 mg Q8H PRN PO MODERATE PAIN (4-6) 12/05/24 11:30 01/04/25 11:29 Insulin Human Regular (humuLIN R 100 UNIT/ML 3ML) INSULIN SLIDING SCAL... ACHS SQ 12/05/24 11:30 01/04/25 11:29 Ketorolac Tromethamine (toRADol) 15 mg Q8H PRN IV MODERATE PAIN (4-6) IF NPO 12/05/24 11:30 12/10/24 11:29 Lactated Ringer's (Lactated Ringers 1000ml) 1,000 ml BOLUS STAT IV 12/05/24 05:34 12/05/24 05:40 DC 12/05/24 05:53 1,000 ML Lactulose (Constulose 20gm/ 30ml Udcup) 20 gm BID PRN PO CONSTIPATION 12/05/24 11:30 01/04/25 11:29 Magnesium Sulfate 50 ml @ 0 mls/hr PROTOCOL PRN IV other 12/05/24 11:30 01/04/25 11:29 Morphine Sulfate (morPHINE 4MG SYG) 1 mg Q4H PRN IVP SEVERE PAIN (7-10) IF NPO 12/05/24 12:00 12/12/24 11:59 Nitroglycerin (Nitrostat) 0.4 mg PROTOCOL PRN SL CHEST PAIN 12/05/24 11:30 01/04/25 11:29 Ondansetron HCl (zoFRAN 4MG INJ) 4 mg Q6H PRN IV NAUSEA/VOMITING 12/05/24 11:30 01/04/25 11:29 Oxycodone/ Acetaminophen (perCOCET) 1 tab Q6H PRN PO SEVERE PAIN (7-10) 12/05/24 11:30 12/12/24 11:29 Potassium Chloride 100 ml @ 100 mls/hr AD PRN IV POTASSIUM PROTOCOL 12/05/24 11:30 01/04/25 11:29 Potassium Chloride (K-Dur/Klor-Con 20meq) 20 meq AD PRN PO POTASSIUM PROTOCOL 12/05/24 11:30 01/04/25 11:29 Potassium Chloride (KCl 10% Elixir 20meq/15ml) 20 meq AD PRN PO POTASSIUM PROTOCOL 12/05/24 11:30 01/04/25 11:29 Sodium Chloride 1,000 ml @ 100 mls/hr Q10H IV 12/05/24 11:30 01/04/25 11:29 Zolpidem Tartrate (AmbIEN) 5 mg HS PRN PO INSOMNIA 12/05/24 11:30 01/04/25 11:29 DIAGNOSTICS / RADIOLOGY: [ ] ASSESSMENT: [ Acute small-bowel obstruction per CT abdomen/pelvis POA Multiple ventral hernia per CT abdomen/pelvis POA Cholelithiasis per CT abdomen/pelvis POA Moderate T10 wedge compression fracture per CT abdomen/pelvis POA Severe L3/L4 disc height loss per CT abdomen/pelvis POA Atelectasis per CT abdomen/pelvis POA Nondisplaced fracture 5th metatarsal per foot x-ray POA Mild osteopenia per foot x-ray POA Acute dehydration POA History of the right ankle dislocation s/p reduction and splinting 11/16/2019 Uncontrolled hypertension Leukocytosis WBC 11.4 POA Multifactorial anemia POA Hyperlipidemia POA Gastritis POA Depression POA Anxiety POA History of gastric bypass History of gastric bypass reversion History of tubal ligation History of multiple skin removal cosmetic History of tonsillectomy ] PLAN: [ Admit to medical-surgical floor Consult surgeon for small bowel obstruction Patient is refusing NG tube Patient is refusing neurosurgeon Dr. Parsons for evaluation of the compression fracture T10 and severe L3/L4 disc height loss. Normal saline at 100 mL/hour Heparin prophylaxis Zosyn antibiotics A.m. labs X-ray abdomen negative Foot x-ray showed nondisplaced fracture 5th metatarsal with a soft tissue edema. Mild osteopenia. CT abdomen/pelvis shows small bowel obstructio with transition point left abdominal anastomosis. Multiple ventral hernias. Cholelithiasis. Gallbladder distended. Moderate T 10 wedge compression fracture. Severe L3/L4 disc height loss. Atelectasis. 2D echo pending Hyper hypoglycemia protocol Hypokalemia protocol Hypomagnesemia protocol 2D echo pending PT for evaluation Case management for disposition Urine culture pending ] ADVANCED CARE PLANNING 1. Which of the following were discussed? Hospice Care - Yes / No Therapeutic options - Yes / No Advance Directives - Yes / No Other discussions - 2. Discussed with who? Patient 3. Voluntary nature of this service was explained to the patient? Yes / No 4. Amount of time spent - ___ more than 35 minutes ____ 5. Reviewed by Physician? (if this service was performed by NPP) Yes / No ATTESTATION BY PHYSICIAN I have seen and examined the patient. I reviewed the documentation, medical decision making, and treatment plan as noted by the mid-level provider above. I agree with the findings and plan of care. Heather Butt MD, [employer] Dec 05, 2024 12:43
--- NOTE | 2024-12-05 13:20 | NUR ---
US AT BEDSIDE
[2024-12-05] MEDS: 0.9%NACL 1000ML 1,000 ML IV SCH (13:54)
[2024-12-05] MEDS: ZOSYN 3.375GM +NS 50ML IV SCH (13:55)
[2024-12-05 14:50] LABS: COVID19 (SARS ANTIGEN RAPID) PRESUMPTIVE NEGATIVE (NEGATIVE); INFLUENZA TYPE A Negative For Type A (NEGATIVE); INFLUENZA TYPE B Negative For Type B (NEGATIVE)
--- NOTE | 2024-12-05 15:15 | NUR ---
arrived from ER patient alert and oriented x4, vitals stable, room air, denies pain/nausea at this time
[2024-12-05 15:33] VITALS: BP 144/86; PULSE 68; RESP 18; TEMP 98.1
--- NOTE | 2024-12-05 16:11 | NUR ---
DCP:HOME Pt currently lives alone in her home. Pt is using crutches at this time however states that she normally does not use them, she's only using them because she got hurt on her toes. Pt does not have home health or provider services. Pt states that she is able to complete ADLs independently. PCP is Dr. Oskar Bennett and uses [facility] for any RX needs. At [place] pt will want to go home and fam/friends can assist with transportation. Addendum: 12/05/24 at 1614 by SHAWN BOLES SS Amended: Links added.
[2024-12-05] MEDS ORDERED: ALPR0.5T8 PO (16:54)
[2024-12-05] MEDS ORDERED: AMLO-258 PO (16:54)
[2024-12-05] MEDS ORDERED: GABAPENTIN (16:54)
[2024-12-05] MEDS ORDERED: PROG100C11 PO (16:54)
[2024-12-05] MEDS ORDERED: ATOR40TA71 PO (16:54)
[2024-12-05] MEDS ORDERED: PREDAOS OU (16:54)
[2024-12-05] MEDS ORDERED: LOSA50TA64 PO (16:54)
[2024-12-05] MEDS ORDERED: TRAM50TA4 PO (16:54)
--- NOTE | 2024-12-05 17:24 | CONS ---
CONSULT NOTE: Consulting physician: Dr. Fisher Consulting service: General surgery Reason for consultation: Small bowel obstruction with multiple ventral hernia History of present illness: This is a 59-year-old female with a medical history listed below that has been consulted to surgery after presenting to the hospital with concerns of abdominal discomfort associated with nausea and vomiting. Patient with significant surgical history with previous episodes similar to current presentation. Upon initial concerns patient presented to the hospital for further evaluation where multiple hernias noted and concerns for possible small bowel obstruction seen. Since admission patient has not been nauseous. No episodes of nausea or vomitin g. Patient also with no need for NG tube at this time. Patient remains NPO. On physical exam no significant abdominal pain but palpable hernia noted Medical history: Hypertension, hyperlipidemia, gastritis, depression, anxiety PAST SURGICAL HISTORY: Gastric bypass, revision of gastric bypass, tubal ligation, cosmetic skin removal multiple, tonsillectomy PAST SOCIAL HISTORY: Patient denies smoking. Patient denies any drug illicit. Patient stated that she drinks occasionally FAMILY HISTORY: Patient is independent. Patient lives at home alone Coded Allergies: bupropion (Unverified Allergy, Unknown, 07/09/18) latex (Unverified Allergy, Unknown, 11/16/19) lisinopril (Unverified Allergy, Unknown, 07/09/18) Review of systems: General: No Fever, No Chills, No Night Sweats, No Fatigue, No Malaise, No Appetite, No Other HEENT: No Head Aches, No Visual Changes, No Eye Pain, No Ear Pain, No Dysphasia, No Sinus Congestion, No Post Nasal Drip, No Sore Throat, No Other Pulmonary: No Dyspnea, No Cough, No Pleuritic Chest Pain, No Other Cardiovascular: No: Chest Pain, Palpitations, Orthopnea, Paroxysmal No Dyspnea, Edema, Lt Headedness, Other Gastrointestinal: No: Nausea, Vomiting, Diarrhea, Constipation, Melena, Hematochezia, Other Genitourinary: No Dysuria, No Frequency, No Incontinence, No Hematuria, No Retention, No Other Musculoskeletal: No: other, neck pain, shoulder pain, arm pain, back pain, hand pain, leg pain, foot pain Skin: No Urticaria, No Rash, No Other Neurological: No: Weakness, Numbness, Incoordination, Change in speech, Confusion, Seizures, Other Physical exam: GENERAL APPEARANCE: The patient is awake, alert, and oriented, in no acute cardiopulmonary distress. NEUROLOGICAL: Cranial nerves II-XII grossly intact. Motor is 5/5 in bilateral upper and lower extremities proximal to distal. No sensory deficits. HEENT: Face is symmetric. Pupils are equal and reactive. Extraocular movements are intact. NECK: Supple. No JVD. No thyromegaly. No submental, submandibular, pre- /postauricular, occipital or supraclavicular lymphadenopathy. CHEST: Normal chest expansion. No Telemetry. LUNGS: Absence of any rales, rhonchi or any wheezing. CARDIOVASCULAR: Regular. S1 and S2 normal. No appreciable rubs, murmurs or gallops. ABDOMEN: Soft, nontender, and nondistended. There is no rebound, voluntary guarding, or rigidity. Laparotomy incision with concerning hernia notable : Deferred. No Salazar. EXTREMITIES: Non-edematous and not cyanotic. No clubbing. Good capillary refi ll. SKIN: No skin breakdown. Assessment: This is a 59-year-old female with concerns of small bowel obstruction with multiple ventral wall hernias Plan: This point in time we will continue with conservative management No immediate need for NG tube at this time If patient begins with flatus consideration for commencement of clear liquids Patient becomes nauseous NG tube may need to be inserted Repeat KUB tomorrow No immediate surgical intervention at this time Dr. Tate to be updated in patient's status and surgical team to follow patient closely Surgical case has been discussed with my supervising physician in the above plan was formulated and agreed upon Supervising physicians evaluation the patient be done within next 24 hours We appreciate the hospitalist team for us to participate in patient's care. Greater than 55 minutes of time spent patient, reviewing chart, working on d reggieation AFSHIN FLETCHER Jr. Dec 05, 2024 17:24
[2024-12-05 18:07] VITALS: O2SAT 94
[2024-12-05 19:45] VITALS: BP 126/75; PULSE 65; RESP 20; TEMP 98.3
[2024-12-05 19:59] VITALS: O2SAT 93
[2024-12-05] MEDS: FAMOTIDINE 20MG VIAL IV SCH (20:27)
[2024-12-05 23:43] VITALS: BP 113/56; PULSE 65; RESP 16; TEMP 98
[2024-12-06] VITALS (7 sets, daily range): BP systolic 129–160; BP diastolic 74–94; PULSE 59–78; RESP 16–20; TEMP 97.3–98.4; O2SAT 95–98
--- NOTE | 2024-12-06 00:49 | HMCSR ---
APPROVED REPORT EXAM: Two-dimensional and M-mode echocardiogram with Doppler and color Doppler. INDICATION ICD: Congestive heart failure 2D Dimensions RVDd4.1 cmLVEF(%)64.2 (>50%)LVED Vol(simp.)58.3 mL IVSd1.0 (0.7-1.1cm)FS(%)35 %LVES Vol(simp.)17.8 mL LVDd4.1 (3.8-5.6cm)LA (2D)3.1 (1.6-4.0cm)LVEF(%, simp.)69 % PWd0.8 (0.7-1.1cm)Ao Root(2D)2.9 (2.0-3.7cm) IVSs1.0 cmLVOT diam1.9 (1.8-2.4cm) LVDs2.7 (2.5-4.0cm)IVC diam1.6 cm PWs1.4 cm Deformation Strain Apical 4-17.6 % Apical 2-15.9 % Apical 3-21.5 % Global Strain-18.3 % M-Mode Dimensions EPSS0.3 cm LA (MM)3.2 (1.6-4.0cm) Ao Root(MM)3.0 (2.0-3.7cm) Aortic Valve AoV Vmax3.2 m/Nicole Peak GR40.4 mmHgLVOT Vmax1.2 m/s AoV VTI0.6 mAo Mean GR22.0 mmHgLVOT VTI0.25 m GREGORY (VMAX)1.10 cm2AVA (VTI) 1.1 cm2 Mitral Valve MV E Vmax82.1 cm/sDECEL Jwpn959 ms MV A Triz729.4 cm/sP 1/2 T80 ms E/A ratio0.8MVA (PHT)2.8 cm2 TDI E/E' Mzoduq78.1E/E' Rgbbstp13.8 Medial E' Peak V6.80 cm/sLateral E' Peak V7.57 cm/s Pulmonary Valve PV Vmax1.1 m/sPV VTI0.23 mPV Mean GR3.0 mmHg PV Peak GR4.5 mmHg Tricuspid Valve TR Vmax2.1 m/sRAP (EST) 3 gfAfPDHZ82.0 mmHg TR Peak GR19.0 mmHg Left Ventricle The left ventricle is normal size. No regional wall motion abnormalities noted. Mild concentric left ventricular hypertrophy. Left ventricular systolic function is normal, estimated LVEF is 55 to 60%. S tage I diastolic dysfunction. Right Ventricle The right ventricle is normal size. The right ventricular systolic function is normal. Atria The left atrium size is normal. The right atrium size is normal. Aortic Valve Aortic valve is probably trileaflet. The leaflets are thickened and calcified. Trace aortic regurgita tion. Moderate aortic stenosis: Peak velocity 3.2 m/s, mean gradient 22 mmHg, GREGORY 1.1cm2. Mitral Valve The mitral valve is normal in structure. The leaflets are mildly thickened and calcified. Trace juanita l regurgitation. There is no mitral valve stenosis. Tricuspid Valve The tricuspid valve is normal in structure. Trace tricuspid regurgitation. RVSP is 19 mmHg. Pulmonic Valve Pulmonic valve is not well visualized. Great Vessels The aortic root is normal in size. The IVC is normal in size and collapses >50% with inspiration. Pericardium There is no pericardial effusion. Other Information Quality : Technically difficult study due to body habitus Conclusion Mild concentric left ventricular hypertrophy. No regional wall motion abnormalities noted. Left ventricular systolic function is normal, estimated LVEF is 55 to 60%. Stage I diastolic dysfunction. Moderate aortic stenosis: Peak velocity 3.2 m/s, mean gradient 22 mmHg, GREGORY 1.1cm2. Trace aortic regurgitation. Trace mitral regurgitation. Trace tricuspid regurgitation. PASP is 22 mmHg. There is no pericardial effusion.
[2024-12-06 05:22] LABS: IMMATURE GRANULOCYTE ABSOLUTE 0.05 K/uL (0-1); NUCLEATED RED BLOOD CELLS 0.0 % (0.0-0.19); PLATELET COUNT (AUTO) 164 K/uL (130-400); RED BLOOD CELL COUNT(AUTO) 6.05 MIL/uL (4.00-5.50); RED CELL DISTRIBUTION WIDTH 18.8 % (11.0-15.5); WHITE BLOOD COUNT (AUTO) 7.5 K/uL (4.8-10.8)
[2024-12-06 06:08] LABS: ASPARTATE AMINOTRANSFERASE 47.0 U/L (10-37); CREATINE KINASE, TOTAL 42.0 U/L (21-232); CREATININE 0.7 mg/dL (0.5-1.0); GLOMERULAR FILTR. RATE CALC 98.0 mL/min (>90); GLUCOSE,RANDOM 107.0 mg/dL (70-105); SODIUM SERUM 141.0 mmol/L (136-145); TOTAL PROTEIN, SERUM 6.7 g/dL (6.0-8.3); UREA NITROGEN, BLOOD 15.0 mg/dL (7-18)
--- NOTE | 2024-12-06 11:16 | HMCIMG ---
EXAM: CR Abdomen, 2 View. CLINICAL HISTORY: SBO COMPARISON: None provided. FINDINGS: BOWEL: The bowel gas pattern is within normal limits. There is abundant colonic fecal matter that may reflect constipation. PERITONEUM/SOFT TISSUES: No free air evident. No pathologic appearing calcification. BONES: No aggressive appearing osseous lesion seen. IMPRESSION: The bowel gas pattern is within normal limits. /[place]
--- NOTE | 2024-12-06 14:52 | PN ---
GENERAL SURGERY PROGRESS NOTE Date/Time Patient Seen: [ 12/06/2024 11:30 AM] Problem List: [ 59-year-old female with possible small bowel obstruction] Interval History: [Patient states she has doing significantly better Patient states she had a large formed bowel movements last night and this morning KUB done today was normal, no obstruction WBCs 7.5 H&H 12.0 and 40.3] Current Medications Medications (Trade) Dose Ordered Sig/Musa Route Start Time Stop Time Status Last Admin Dose Admin Famotidine (Pepcid 20mg Vial) 20 mg BID IV 12/05/24 21:00 01/04/25 20:59 12/06/24 09:40 20 MG Heparin Sodium (Porcine) (HEParin 5,000 UNIT VIAL) 5,000 unit BID SQ 12/05/24 21:00 01/04/25 20:59 12/06/24 09:40 5,000 UNIT Hydromorphone HCl (DiLAUDid 1MG INJ) 1 mg ONCE STAT IVP 12/05/24 08:06 12/05/24 08:09 DC 12/05/24 08:17 1 MG Insulin Human Regular (humuLIN R 100 UNIT/ML 3ML) INSULIN SLIDING SCAL... ACHS SQ 12/05/24 11:30 01/04/25 11:29 Lactated Ringer's (Lactated Ringers 1000ml) 1,000 ml BOLUS STAT IV 12/05/24 05:34 12/05/24 05:40 DC 12/05/24 05:53 1,000 ML Metoprolol Tartrate (loprESSOR) 12.5 mg BID PO 12/05/24 21:00 01/04/25 20:59 12/05/24 20:28 12.5 MG Pantoprazole Sodium (PROTonix 40MG TAB) 40 mg DAILY PO 12/06/24 09:00 12/05/24 12:41 DC Piperacillin Sod/ Tazobactam Sod (Zosyn 3.375gm+NS 50ml) 3.375 gm Q8H IV 12/05/24 13:00 12/06/24 11:06 DC 12/06/24 04:24 3.375 GM Ropinirole HCl (REquip) 2 mg BID PO 12/05/24 21:00 01/04/25 20:59 12/05/24 20:28 2 MG Sertraline HCl (ZOloft 50 mg tab) 100 mg DAILY PO 12/06/24 09:00 01/05/25 08:59 Sodium Chloride 1,000 ml @ 75 mls/hr [id number] IV 12/05/24 11:30 01/04/25 11:29 12/06/24 04:24 100 MLS/HR Physical Examination: GENERAL: [No acute distress, female, comfortably resting in bed.] HEAD: [Normocephalic.] EYES: [Normal conjunctiva.] ENT: [Hearing grossly intact.] NECK: [Supple.] LUNGS: [Clear breath sounds bilaterally.] HEART: [Normal rate and rhythm.] VASC: [Peripheral pulses +2 bilaterally.] ABD: [Bowel sounds normal, soft, nontender, no guarding or rigidity.] : [Not examined] EXT: [No edema.] SKIN: [No rashes or lesions noted.] NEURO: [Awake, alert, and oriented x3. No focal sensory or strength deficits noted.] Vital Signs (last 8hr) Date Time Temp Pulse Resp B/P (MAP) Pulse Ox O2 Delivery O2 Flow Rate FiO2 12/06/24 11:34 98.4 64 16 129/74 99 Room Air 12/06/24 07:51 98.2 59 18 150/85 97 Room Air Laboratory: [ ] Hematology Labs: Test 12/06/24 05:00 12/05/24 05:29 Range/Units White Blood Count 7.5 # 4.8-10.8 K/uL Red Blood Count 6.05 H 4.00-5.50 MIL/uL Hemoglobin 12.0 12.0-16.0 g/dL Hematocrit 40.8 36-48 % Mean Corpuscular Volume 67.4 L 79-99 fL Mean Corpuscular Hemoglobin 19.8 L 27.0-33.0 pg Mean Corpuscular Hemoglobin Concent 29.4 L 32.0-36.0 g/dL Red Cell Distribution Width 18.8 H 11.0-15.5 % Platelet Count 164 130-400 K/uL Mean Platelet Volume 7.5-10.5 fL Immature Granulocyte % (Auto) 0.7 0-1 % Neutrophils (%) (Auto) 69.7 40.0-77.0 % Lymphocytes (%) (Auto) 20.1 L 21.0-51.0 % Monocytes (%) (Auto) 7.0 3.0-13.0 % Eosinophils (%) (Auto) 2.1 0.0-8.0 % Basophils (%) (Auto) 0.4 0.0-5.0 % Neutrophils # (Auto) 5.2 1.8-7.7 K/uL Lymphocytes # (Auto) 1.5 1.0-4.8 K/uL Monocytes # (Auto) 0.5 0.1-1.0 K/uL Eosinophils # (Auto) 0.16 0.00-0.70 K/uL Basophils # (Auto) 0.03 0.00-0.20 K/uL Absolute Immature Granulocyte (auto 0.05 0-1 K/uL Nucleated Red Blood Cells 0.0 0.0-0.19 % Red Blood Cell Morphology See comments Chemistry Labs: Test 12/06/24 11:26 12/06/24 05:00 12/05/24 05:29 Range/Units Whole Blood Glucose 117 H 70-110 MG/DL Sodium Level 141 136-145 mmol/L Potassium Level 4.1 3.5-5.1 mmol/L Chloride Level 104 101-111 mmol/L Carbon Dioxide Level 29 21-32 mmol/L Blood Urea Nitrogen 15 7-18 mg/dL Creatinine 0.7 0.5-1.0 mg/dL Glomerular Filtration Rate Calc 98 >90 mL/min Random Glucose 107 H 70-105 mg/dL Lactic Acid Level 0.9 0.8-2.5 mmol/L Total Calcium 8.2 L 8.5-10.1 mg/dL Magnesium Level 2.50 H 1.80-2.40 mg/dL Total Bilirubin 0.6 0.2-1.0 mg/dL Direct Bilirubin 0.1 0.0-0.3 mg/dL Aspartate Amino Transf (AST/SGOT) 47 H 10-37 U/L Alanine Aminotransferase (ALT/SGPT) 46 12-78 U/L Alkaline Phosphatase 67 50-136 U/L Ammonia 15 11-32 umol/L Total Creatine Kinase 42 # 21-232 U/L B-Type Natriuretic Peptide 69 0-100 pg/mL Total Protein 6.7 6.0-8.3 g/dL Albumin 3.5 3.5-5.0 g/dL Amylase Level 33 25-115 U/L Lipase 34 16-77 U/L Procalcitonin 0.17 0.05-0.5 ng/mL Thyroid Stimulating Hormone (TSH) 2.11 0.36-3.74 uIU/mL Free Thyroxine (T4) Direct 0.98 0.76-1.46 ng/dL Free Triiodothyronine (T3) pg/mL 2.19 2.18-3.98 pg/mL Hemoglobin A1c 5.4 4.0-6.0 % Estimated Average Glucose (eAG) 108 70-126 mg/dL Troponin I High Sensitivity 5 4-50 ng/L Diagnostics / Radiology: [facility] [address] [place] [address] [id number] IMAGING REPORT Signed PATIENT: NINI PAREDES MR#: [id number] : 1965 SEX: F AGE: 59 LOCATION: 3B ORDER [id number] STATUS: ADM IN REPORT#: [id number] SERVICE [id number] REASON: SBO ORDERING PHYSICIAN: DANIEL XIAO [employer]EDIATRICIAN [employer]NAGING [employer]NER PROCEDURE: ABD 1VW - ABD 1VW EXAM: CR Abdomen, 2 View. CLINICAL HISTORY: SBO COMPARISON: None provided. FINDINGS: BOWEL: The bowel gas pattern is within normal limits. There is abundant colonic fecal matter that may reflect constipation. PERITONEUM/SOFT TISSUES: No free air evident. No pathologic appearing calcification. BONES: No aggressive appearing osseous lesion seen. IMPRESSION: The bowel gas pattern is within normal limits. /[place] DICTATED BY: EARLINE TRAYLOR Jr., MD DATE: 12/06/241214 ELECTRONICALLY SIGNED BY: EARLINE TRAYLOR Jr., MD DATE: 12/06/241214 Impression and Plan: [59-year-old female with resolved small bowel obstruction Patient had a large formed bowel movement this morning and has been passing gas Abdomen is soft, nondistended and nontender From surgical standpoint, no emergent surgical intervention at this time Patient may be started on clear liquids and advance diet as tolerated Patient may be discharged home when cleared by hospitalist Patient instructed on increasing her dietary fiber and water intake Surgical team will sign off case for now Dr. Tate updated on patient's status Surgical case has been discussed with my supervising physician Plan of care was formulated and agreed upon We appreciate the hospitalist team for allowing us to participate in this patient's care Greater than 45 minutes spent examining patient, reviewing chart and working on documentation ATTESTATION BY PHYSICIAN I have seen and examined the patient. I reviewed the documentation, medical decision making, and treatment plan as noted by the mid-level provider above. I agree with the findings and plan of care. MD NINOSKA AVELAR [facility] Dec 06, 2024 14:52
--- NOTE | 2024-12-06 16:15 | PN ---
[facility] PROGRESS NOTE Date of Service: Dec 06, 2024 Time of Service: 16:15 SUBJECTIVE: [ ] Patient is 59 years old female with a past medical history of right ankle fracture dislocation s/p reduction and splinting 2019, hypertension, hyperlipidemia, gastritis, depression, anxiety, gastric bypass with a revision, tubal ligation tonsillectomy and multiple cosmetic skin removal, who came to emergency department with a complaint of nausea, vomiting and severe abdominal pain. Patient stated that yesterday at about 2:00 p.m. she had a dinner which include Lantus, potatoes, califlowe and beeg. After that she has been failing really well until the moment around midnight when she woke up feeling " off ". Patient was also complaining of anxiety severe stomach pain sweatiness and she was not able to sleep. Urinary morning she also had persistent nausea and vomiting. The abdominal pain became very dull, strong that she was not able to so she decided to come to the hospital for further evaluation/recommendation. Most recent vital signs temperature 98.6 pulse 80 respirations 16 blood pressure 181/98 patient is on room air satting 96%. WBC 11.4 hemoglobin 13.9 hematocrit 44.6 platelets 215. UA negative for leukocytosis. Sodium 138 potassium 4.3 CO2 24 BUN 19 creatinine 1.0 GFR was 64 random glucose 140 calcium 9.4 troponin negative x1 lipase 33.X-ray abdomen negative.CT abdomen/pelvis shows small bowel obstructio with transition point left abdominal anastomosis. Multiple ventral hernias. Cholelithiasis. Gallbladder distended. Moderate T 10 wedge compression fracture. Severe L3/L4 disc height loss. 12/06/2024: Patient seen and evaluated at bedside in room 310. Case discussed with RN, no acute overnight events. CT abdomen pelvis showed small-bowel obstruction with transition point left abdomen anastomosis. Patient says that she is feeling better now and she has passed large formed stools yesterday night and today morning, she is passing flatus. General surgery consulted, no emergent surgical intervention needed at this point of time and cleared to start on liquid diet and then advance to soft solid diet. REVIEW OF SYSTEMS CONSTITUTIONAL: Denies fevers, chills, or night sweats. No unintentional weight loss reported. NEUROLOGICAL: Denies headache, amaurosis fugax, motor weakness, sensory deficit, vertigo/spinning sensation, gait abnormalities, or tremors. ENT: No hearing loss, otalgia, otorrhea, rhinitis, rhinorrhea, hoarseness, or sore throat. CARDIOVASCULAR: Denies any exertional angina, dyspnea on exertion, orthopnea, p aroxysmal nocturnal dyspnea, palpitations, life-threatening arrhythmias, claudication. PULMONARY: Denies any shortness of breath, cough, phlegm/sputum, hemoptysis, pleuritic chest pain. SLEEP: Denies morning headaches, daytime somnolence or napping. Denies difficulty falling asleep, staying asleep, waking from sleep. Denies knowledge of snoring. GASTROINTESTINAL: Denies any type of dysphagia to either liquids or solids. Denies pyrosis, early satiety, diarrhea, constipation, or changes in stool consistency or caliber. Denies coffee-ground emesis, hematemesis, hematochezia, or melanotic stools. Severe abdominal pain with nausea and vomiting GENITOURINARY: Denies frequency, urgency, nocturia, hematuria or incontinence (Storage/Irritative symptoms.) Low urinary stream, straining to void, urinary intermittency or hesitancy, splitting of the voiding stream, terminal dribbling. ENDOCRINOLOGIC: Denies polyuria, polydipsia, polyphagia or heat/cold intolerances. HEMATOLOGIC: Denies thrombophilia/previous clots, or coagulopathy/bleeding disorders. ONCOLOGIC: Denies personal history of malignancy. DERMATOLOGIC: Denies rashes or pruritus. PSYCHIATRIC: Denies any suicidal or homicidal ideation. Denies hallucinations. PHYSICAL EXAM GENERAL APPEARANCE: The patient is awake, alert, and oriented, in no acute cardiopulmonary distress. NEUROLOGICAL: Cranial nerves II-XII grossly intact. Motor is 5/5 in bilateral upper and lower extremities proximal to distal. No sensory deficits. HEENT: Face is symmetric. Pupils are equal and reactive. Extraocular movements are intact. NECK: Supple. No JVD. No thyromegaly. No submental, submandibular, pre- /postauricular, occipital or supraclavicular lymphadenopathy. CHEST: Normal chest expansion. No Telemetry. LUNGS: Absence of any rales, rhonchi or any wheezing. CARDIOVASCULAR: Regular. S1 and S2 normal. No appreciable rubs, murmurs or gallops. ABDOMEN: Soft, nontender, and nondistended. There is no rebound, voluntary guarding, or rigidity. : Deferred. No Salazar. EXTREMITIES: Non-edematous and not cyanotic. No clubbing. Good capillary refill. SKIN: No skin breakdown. Vital Signs (last 8hr) Date Time Temp Pulse Resp B/P (MAP) Pulse Ox O2 Delivery O2 Flow Rate FiO2 12/06/24 15:59 98.2 66 18 160/76 98 Room Air 12/06/24 11:34 98.4 64 16 129/74 99 Room Air LABS: Laboratory: Test 12/06/24 15:31 12/06/24 05:00 12/05/24 14:23 12/05/24 06:56 Range/Units Whole Blood Glucose 104 70-110 MG/DL White Blood Count 7.5 # 4.8-10.8 K/uL Red Blood Count 6.05 H 4.00-5.50 MIL/uL Hemoglobin 12.0 12.0-16.0 g/dL Hematocrit 40.8 36-48 % Mean Corpuscular Volume 67.4 L 79-99 fL Mean Corpuscular Hemoglobin 19.8 L 27.0-33.0 pg Mean Corpuscular Hemoglobin Concent 29.4 L 32.0-36.0 g/dL Red Cell Distribution Width 18.8 H 11.0-15.5 % Platelet Count 164 130-400 K/uL Mean Platelet Volume 7.5-10.5 fL Immature Granulocyte % (Auto) 0.7 0-1 % Neutrophils (%) (Auto) 69.7 40.0-77.0 % Lymphocytes (%) (Auto) 20.1 L 21.0-51.0 % Monocytes (%) (Auto) 7.0 3.0-13.0 % Eosinophils (%) (Auto) 2.1 0.0-8.0 % Basophils (%) (Auto) 0.4 0.0-5.0 % Neutrophils # (Auto) 5.2 1.8-7.7 K/uL Lymphocytes # (Auto) 1.5 1.0-4.8 K/uL Monocytes # (Auto) 0.5 0.1-1.0 K/uL Eosinophils # (Auto) 0.16 0.00-0.70 K/uL Basophils # (Auto) 0.03 0.00-0.20 K/uL Absolute Immature Granulocyte (auto 0.05 0-1 K/uL Nucleated Red Blood Cells 0.0 0.0-0.19 % Sodium Level 141 136-145 mmol/L Potassium Level 4.1 3.5-5.1 mmol/L Chloride Level 104 101-111 mmol/L Carbon Dioxide Level 29 21-32 mmol/L Blood Urea Nitrogen 15 7-18 mg/dL Creatinine 0.7 0.5-1.0 mg/dL Glomerular Filtration Rate Calc 98 >90 mL/min Random Glucose 107 H 70-105 mg/dL Lactic Acid Level 0.9 0.8-2.5 mmol/L Total Calcium 8.2 L 8.5-10.1 mg/dL Magnesium Level 2.50 H 1.80-2.40 mg/dL Total Bilirubin 0.6 0.2-1.0 mg/dL Direct Bilirubin 0.1 0.0-0.3 mg/dL Aspartate Amino Transf (AST/SGOT) 47 H 10-37 U/L Alanine Aminotransferase (ALT/SGPT) 46 12-78 U/L Alkaline Phosphatase 67 50-136 U/L Ammonia 15 11-32 umol/L Total Creatine Kinase 42 # 21-232 U/L B-Type Natriuretic Peptide 69 0-100 pg/mL Total Protein 6.7 6.0-8.3 g/dL Albumin 3.5 3.5-5.0 g/dL Amylase Level 33 25-115 U/L Lipase 34 16-77 U/L Procalcitonin 0.17 0.05-0.5 ng/mL Thyroid Stimulating Hormone (TSH) 2.11 0.36-3.74 uIU/mL Free Thyroxine (T4) Direct 0.98 0.76-1.46 ng/dL Free Triiodothyronine (T3) pg/mL 2.19 2.18-3.98 pg/mL Influenza Type A Antigen Negative For Type A NEGATIVE Influenza Type B Antigen Negative For Type B NEGATIVE SARS-CoV-2 Antigen (Rapid) PRESUMPTIVE NEGATIVE NEGATIVE Urine Color YELLOW YELLOW Urine Appearance CLEAR CLEAR Urine pH 7.0 5.0-8.0 Urine Specific [place] 1.010 1.001-1.031 Urine Protein NEGATIVE NEGATIVE mg/dL Urine Glucose (UA) NEGATIVE NEGATIVE mg/dL Urine Ketones NEGATIVE NEGATIVE mg/dL Urine Occult Blood NEGATIVE NEGATIVE Urine Nitrate NEGATIVE NEGATIVE Urine Bilirubin NEGATIVE NEGATIVE mg/dL Urine Urobilinogen 0.2 0.2-1.0 mg/dL Urine Leukocyte Esterase NEGATIVE NEGATIVE Samantha/uL Test 12/05/24 05:29 Range/Units Red Blood Cell Morphology See comments Hemoglobin A1c 5.4 4.0-6.0 % Estimated Average Glucose (eAG) 108 70-126 mg/dL Troponin I High Sensitivity 5 4-50 ng/L Current Medications Medications (Trade) Dose Ordered Sig/Musa Route PRN Reason Start Time Stop Time Status Last Admin Dose Admin Acetaminophen (TYLenol 325MG TAB) 650 mg Q4H PRN PO MILD PAIN (1-3) 12/05/24 11:30 01/04/25 11:29 Acetaminophen (TYLenol 325MG TAB) 650 mg Q6H PRN PO MILD PAIN (1-3) 12/05/24 11:30 12/05/24 11:31 DC Acetaminophen (TYLenol 325MG TAB) 650 mg Q6H PRN PO TEMPERATURE GREATER THAN 101.5 12/05/24 11:30 01/04/25 11:29 Al Hydroxide/Mg Hydroxide (MAALox PLUS 30ML) 30 ml Q6H PRN PO INDIGESTION 12/05/24 11:30 01/04/25 11:29 Dextrose (D50w) 50 ml AD PRN IV HYPOGLYCEMIA PROTOCOL 12/05/24 11:30 01/04/25 11:29 Diphenhydramine HCl (BENAdryl INJ) 25 mg Q6H PRN IV SEVERE ITCHING/RASH 12/05/24 11:30 01/04/25 11:29 Famotidine (Pepcid 20mg Vial) 20 mg BID IV 12/05/24 21:00 01/04/25 20:59 12/06/24 09:40 20 MG Famotidine (Pepcid 20mg Vial) 20 mg BID PRN IV NAUSEA/VOMITING 12/05/24 11:30 12/05/24 11:31 DC Glucagon (Glucagon 1mg Kit) 1 mg AD PRN IM HYPOGLYCEMIA PROTOCOL 12/05/24 11:30 01/04/25 11:29 Guaifenesin/ Dextromethorphan (RobiTUSSin DM 200/20MG 10ML) 10 ml Q4H PRN PO COUGH 12/05/24 11:30 01/04/25 11:29 Heparin Sodium (Porcine) (HEParin 5,000 UNIT VIAL) 5,000 unit BID SQ 12/05/24 21:00 01/04/25 20:59 12/06/24 09:40 5,000 UNIT Hydralazine HCl (APRESOLine 20MG INJ) 10 mg Q6H PRN IV For:SBP above 160;DBP above 90 12/05/24 11:30 01/04/25 11:29 Hydromorphone HCl (DiLAUDid 1MG INJ) 1 mg ONCE STAT IVP 12/05/24 08:06 12/05/24 08:09 DC 12/05/24 08:17 1 MG Ibuprofen (moTRIN) 800 mg Q8H PRN PO MODERATE PAIN (4-6) 12/05/24 11:30 01/04/25 11:29 Insulin Human Regular (humuLIN R 100 UNIT/ML 3ML) INSULIN SLIDING SCAL... ACHS SQ 12/05/24 11:30 01/04/25 11:29 Ketorolac Tromethamine (toRADol) 15 mg Q8H PRN IV MODERATE PAIN (4-6) IF NPO 12/05/24 11:30 12/05/24 12:38 DC Lactated Ringer's (Lactated Ringers 1000ml) 1,000 ml BOLUS STAT IV 12/05/24 05:34 12/05/24 05:40 DC 12/05/24 05:53 1,000 ML Lactulose (Constulose 20gm/ 30ml Udcup) 20 gm BID PRN PO CONSTIPATION 12/05/24 11:30 01/04/25 11:29 Magnesium Sulfate 50 ml @ 0 mls/hr PROTOCOL PRN IV other 12/05/24 11:30 01/04/25 11:29 Metoprolol Tartrate (loprESSOR) 12.5 mg BID PO 12/05/24 21:00 01/04/25 20:59 12/05/24 20:28 12.5 MG Morphine Sulfate (morPHINE 4MG SYG) 1 mg Q4H PRN IVP SEVERE PAIN (7-10) IF NPO 12/05/24 12:00 12/12/24 11:59 Nitroglycerin (Nitrostat) 0.4 mg PROTOCOL PRN SL CHEST PAIN 12/05/24 11:30 01/04/25 11:29 Ondansetron HCl (zoFRAN 4MG INJ) 4 mg Q6H PRN IV NAUSEA/VOMITING 12/05/24 11:30 01/04/25 11:29 Oxycodone/ Acetaminophen (perCOCET) 1 tab Q6H PRN PO SEVERE PAIN (7-10) 12/05/24 11:30 12/05/24 12:39 DC Pantoprazole Sodium (PROTonix 40MG TAB) 40 mg DAILY PO 12/06/24 09:00 12/05/24 12:41 DC Piperacillin Sod/ Tazobactam Sod (Zosyn 3.375gm+NS 50ml) 3.375 gm Q8H IV 12/05/24 13:00 12/06/24 11:06 DC 12/06/24 04:24 3.375 GM Potassium Chloride 100 ml @ 100 mls/hr AD PRN IV POTASSIUM PROTOCOL 12/05/24 11:30 01/04/25 11:29 Potassium Chloride (K-Dur/Klor-Con 20meq) 20 meq AD PRN PO POTASSIUM PROTOCOL 12/05/24 11:30 01/04/25 11:29 Potassium Chloride (KCl 10% Elixir 20meq/15ml) 20 meq AD PRN PO POTASSIUM PROTOCOL 12/05/24 11:30 01/04/25 11:29 Ropinirole HCl (REquip) 2 mg BID PO 12/05/24 21:00 01/04/25 20:59 12/05/24 20:28 2 MG Sertraline HCl (ZOloft 50 mg tab) 100 mg DAILY PO 12/06/24 09:00 01/05/25 08:59 Sodium Chloride 1,000 ml @ 75 mls/hr [id number] IV 12/05/24 11:30 01/04/25 11:29 12/06/24 04:24 100 MLS/HR Zolpidem Tartrate (AmbIEN) 5 mg HS PRN PO INSOMNIA 12/05/24 11:30 01/04/25 11:29 DIAGNOSTICS / RADIOLOGY: [ ] [place] [address] [address] IMAGING REPORT Signed PATIENT: NINI PAREDES MR#: [id number] : 1965 SEX: F AGE: 59 LOCATION: [facility] ORDER 0543 STATUS: REG ER REPORT#: [id number] SERVICE REASON: emesis ORDERING PHYSICIAN: EMBER BARRON MD PROCEDURE: ABD 1VW - ABD 1VW EXAM: CR Abdomen, 1 view. CLINICAL HISTORY: Emesis COMPARISON: Prior CT abdomen and pelvis dated May 04, 2019 FINDINGS: Mildly elevated right hemidiaphragm, probable right diaphragmatic eventration. Non obstructed nonspecific bowel gas pattern. No free air is evident. No abnormal calcification. No aggressive appearing osseous lesion. IMPRESSION: No acute process. No obstructive bowel gas pattern. /[place] DICTATED BY: EARLINE TRAYLOR Jr., MD DATE: 12/05/24747 ELECTRONICALLY SIGNED BY: EARLINE TRAYLOR Jr., MD DATE: 12/05/[address] [address] IMAGING REPORT Signed PATIENT: NINI PAREDES MR#: [id number] : 1965 SEX: F AGE: 59 LOCATION: [facility] ORDER 0 STATUS: REG ER REPORT#: [id number] SERVICE REASON: trauma, r/o fracture ORDERING PHYSICIAN: EMBER BARRON MD PROCEDURE: FT 3VW RT - FOOT COMP 3+VWS RT EXAM: CR right Foot, 3 views. CLINICAL HISTORY: Trauma rule out fracture. COMPARISON: None provided. FINDINGS: Faint transverse lucency at the base of the fifth metatarsal is consistent with a nondisplaced fracture with mild associated soft tissue edema. Mild osteopenia. A compression plate and screws in the distal metaphyseal end of the fibula and a cancellous screw in the medial malleolus of the tibia for prior fracture fixation. Mild degenerative changes in the tibiotalar, talofibular, intertarsal, tarsometatarsal, metatarsophalangeal, and interphalangeal joints. No aggressive appearing osseous lesion. IMPRESSION: Faint transverse lucency at the base of the fifth metatarsal is consistent with a nondisplaced fracture with mild associated soft tissue edema. Mild osteopenia. A compression plate and screws in the distal metaphyseal end of the fibula and a cancellous screw in the medial malleolus of the tibia for prior fracture fixation. Mild degenerative changes in the tibiotalar, talofibular, intertarsal, tarsometatarsal, metatarsophalangeal, and interphalangeal joints. /[place] DICTATED BY: EARLINE TRAYLOR Jr., MD DATE: 12/05/24836 ELECTRONICALLY SIGNED BY: EARLINE TRAYLOR Jr., MD DATE: 12/05/[address] [address] IMAGING REPORT Addendum PATIENT: NINI PAREDES MR#: [id number] : 1965 SEX: F AGE: 59 LOCATION: [facility] ORDER 3 STATUS: REG ER REPORT#: [id number] SERVICE 2 REASON: diffuse abdominal pain ORDERING PHYSICIAN: GABO MARTINEZ MD PROCEDURE: ABD PELVWO - CT ABD/PEL WO CON RENAL/APPY ADDENDUM REPORT ADDENDUM: Results were shared by telephone at 10:37 am on 12/05/24 and acknowledged by Gabo Posada /[place] EXAM: CT Abdomen and Pelvis Without IV contrast CLINICAL HISTORY: diffuse abdominal pain TECHNIQUE: Axial computed tomography images of the abdomen and pelvis without intravenous contrast. CONTRAST: No IV contrast. COMPARISON: None provided. FINDINGS: LUNG BASES: Bibasilar subsegmental atelectasis. LIVER: Unremarkable. GALLBLADDER AND BILE DUCTS: Cholelithiasis. Distended gallbladder. PANCREAS: Unremarkable. SPLEEN: Unremarkable. ADRENAL GLANDS: Unremarkable. KIDNEYS, URETERS, AND BLADDER: The kidneys appear within normal limits. There is no hydronephrosis or hydroureter. No urinary calculi are seen. STOMACH AND BOWEL: There are postoperative changes of the stomach. Multiple ventral wall hernias containing fat. One of the hernias contains the antimesenteric surface of the transverse colon. There is a small bowel obstruction with a transition point at the level of an anastomosis within the left abdomen. APPENDIX: No evidence of acute appendicitis on CT examination. PERITONEUM: No free fluid. No free air. LYMPH NODES: No lymphadenopathy is evident. REPRODUCTIVE: Unremarkable as visualized. VASCULATURE: Aortic atherosclerosis noted. BONES: Moderate wedge compression fracture of T10. Severe loss of disc height at L3/L4. IMPRESSION: 1. Small bowel obstruction with transition point at left abdominal anastomosis. 2. Multiple ventral wall hernias, including one containing transverse colon. 3. Cholelithiasis with gallbladder distension. 4. Moderate T10 wedge compression fracture. 5. Severe L3/L4 disc height loss. 6. Postoperative changes of the stomach. 7. Bibasilar subsegmental atelectasis. 8. Aortic atherosclerosis. /[place] DICTATED BY: EARLINE TRAYLOR Jr., MD DATE: 12/05/24 1142 ELECTRONICALLY SIGNED BY: DATE: EXAM: CT Abdomen and Pelvis Without IV contrast CLINICAL HISTORY: diffuse abdominal pain TECHNIQUE: Axial computed tomography images of the abdomen and pelvis without intravenous contrast. CONTRAST: No IV contrast. COMPARISON: None provided. FINDINGS: LUNG BASES: Bibasilar subsegmental atelectasis. LIVER: Unremarkable. GALLBLADDER AND BILE DUCTS: Cholelithiasis. Distended gallbladder. PANCREAS: Unremarkable. SPLEEN: Unremarkable. ADRENAL GLANDS: Unremarkable. KIDNEYS, URETERS, AND BLADDER: The kidneys appear within normal limits. There is no hydronephrosis or hydroureter. No urinary calculi are seen. STOMACH AND BOWEL: There are postoperative changes of the stomach. Multiple ventral wall hernias containing fat. One of the hernias contains the antimesenteric surface of the transverse colon. There is a small bowel obstruction with a transition point at the level of an anastomosis within the left abdomen. APPENDIX: No evidence of acute appendicitis on CT examination. PERITONEUM: No free fluid. No free air. LYMPH NODES: No lymphadenopathy is evident. REPRODUCTIVE: Unremarkable as visualized. VASCULATURE: Aortic atherosclerosis noted. BONES: Moderate wedge compression fracture of T10. Severe loss of disc height at L3/L4. IMPRESSION: 1. Small bowel obstruction with transition point at left abdominal anastomosis. 2. Multiple ventral wall hernias, including one containing transverse colon. 3. Cholelithiasis with gallbladder distension. 4. Moderate T10 wedge compression fracture. 5. Severe L3/L4 disc height loss. 6. Postoperative changes of the stomach. 7. Bibasilar subsegmental atelectasis. 8. Aortic atherosclerosis. /[place] DICTATED BY: MELI KING MD DATE: 12/05/24 102 ELECTRONICALLY SIGNED BY: MELI KING MD DATE: 12/05/[address] [address] IMAGING REPORT Signed PATIENT: NINI PAREDES MR#: [id number] : 1965 SEX: F AGE: 59 LOCATION: [facility] ORDER 1126 STATUS: ADM IN REPORT#: [id number] SERVICE 1120 REASON: chf ORDERING PHYSICIAN: ANA SAEED APRN PROCEDURE: ECHO CMP - ECHO 2-D COMPLETE APPROVED REPORT EXAM: Two-dimensional and M-mode echocardiogram with Doppler and color Doppler. INDICATION ICD: Congestive heart failure 2D Dimensions RVDd 4.1 cm LVEF(%) 64.2 (>50%) LVED Vol(simp.) 58.3 mL IVSd 1.0 (0.7-1.1cm) FS(%) 35 % LVES Vol(simp.) 17.8 mL LVDd 4.1 (3.8-5.6cm) LA (2D) 3.1 (1.6-4.0cm) LVEF(%, simp.) 69 % PWd 0.8 (0.7-1.1cm) Ao Root(2D) 2.9 (2.0-3.7cm) IVSs 1.0 cm LVOT diam 1.9 (1.8-2.4cm) LVDs 2.7 (2.5-4.0cm) IVC diam 1.6 cm PWs 1.4 cm Deformation Strain Apical 4 -17.6 % Apical 2 -15.9 % Apical 3 -21.5 % Global Strain -18.3 % M-Mode Dimensions EPSS 0.3 cm LA (MM) 3.2 (1.6-4.0cm) Ao Root(MM) 3.0 (2.0-3.7cm) Aortic Valve AoV Vmax 3.2 m/s Ao Peak GR 40.4 mmHg LVOT Vmax 1.2 m/s AoV VTI 0.6 m Ao Mean GR 22.0 mmHg LVOT VTI 0.25 m GREGORY (VMAX) 1.10 cm2 GREGORY (VTI) 1.1 cm2 Mitral Valve MV E Vmax 82.1 cm/s DECEL Time 182 ms MV A Vmax 105.4 cm/s P 1/2 T 80 ms E/A ratio 0.8 MVA (PHT) 2.8 cm2 TDI E/E' Medial 12.1 E/E' Lateral 10.8 Medial E' Peak V 6.80 cm/s Lateral E' Peak V 7.57 cm/s Pulmonary Valve PV Vmax 1.1 m/s PV VTI 0.23 m PV Mean GR 3.0 mmHg PV Peak GR 4.5 mmHg Tricuspid Valve TR Vmax 2.1 m/s RAP (EST) 3 mmHg RVSP 22.0 mmHg TR Peak GR 19.0 mmHg Left Ventricle The left ventricle is normal size. No regional wall motion abnormalities noted. Mild concentric left ventricular hypertrophy. Left ventricular systolic function is normal, estimated LVEF is 55 to 60%. Stage I diastolic dysfunction. Right Ventricle The right ventricle is normal size. The right ventricular systolic function is normal. Atria The left atrium size is normal. The right atrium size is normal. Aortic Valve Aortic valve is probably trileaflet. The leaflets are thickened and calcified. Trace aortic regurgitation. Moderate aortic stenosis: Peak velocity 3.2 m/s, mean gradient 22 mmHg, GREGORY 1.1cm2. Mitral Valve The mitral valve is normal in structure. The leaflets are mildly thickened and calcified. Trace mitral regurgitation. There is no mitral valve stenosis. Tricuspid Valve The tricuspid valve is normal in structure. Trace tricuspid regurgitation. RVSP is 19 mmHg. Pulmonic Valve Pulmonic valve is not well visualized. Great Vessels The aortic root is normal in size. The IVC is normal in size and collapses >50% with inspiration. Pericardium There is no pericardial effusion. Other Information Quality : Technically difficult study due to body habitus Conclusion Mild concentric left ventricular hypertrophy. No regional wall motion abnormalities noted. Left ventricular systolic function is normal, estimated LVEF is 55 to 60%. Stage I diastolic dysfunction. Moderate aortic stenosis: Peak velocity 3.2 m/s, mean gradient 22 mmHg, GREGORY 1.1cm2. Trace aortic regurgitation. Trace mitral regurgitation. Trace tricuspid regurgitation. PASP is 22 mmHg. There is no pericardial effusion. DICTATED BY: CHRISTOPHER COLON MD DATE: 12/05/24 1313 ELECTRONICALLY SIGNED BY: CHRISTOPHER COLON MD DATE: 12/06/24 0049 ASSESSMENT: [ Acute small-bowel obstruction per CT abdomen/pelvis POA Multiple ventral hernia per CT abdomen/pelvis POA Cholelithiasis per CT abdomen/pelvis POA Moderate T10 wedge compression fracture per CT abdomen/pelvis POA Severe L3/L4 disc height loss per CT abdomen/pelvis POA Atelectasis per CT abdomen/pelvis POA Nondisplaced fracture 5th metatarsal per foot x-ray POA Mild osteopenia per foot x-ray POA Acute dehydration POA History of the right ankle dislocation s/p reduction and splinting 11/16/2019 Uncontrolled hypertension Leukocytosis WBC 11.4 POA Multifactorial anemia POA Hyperlipidemia POA Gastritis POA Depression POA Anxiety POA History of gastric bypass History of gastric bypass reversion History of tubal ligation History of multiple skin removal cosmetic History of tonsillectomy ] PLAN: Acute small-bowel obstruction per CT abdomen/pelvis POA -CT abdomen/pelvis shows small bowel obstructio with transition point left abdominal anastomosis -patient passed large formed stools yesterday night and this morning, passing flatus. -surgery consulted, no emergent surgical interventions needed -started on clear liquid diet, we will advance as tolerated Patient is refusing neurosurgeon Dr. Parsons for evaluation of the compression fracture T10 and severe L3/L4 disc height loss. Normal saline at 75 mL/hour Heparin prophylaxis Zosyn discontinued as lab workup showed no signs of infection. Hyper hypoglycemia protocol Hypokalemia protocol Hypomagnesemia protocol Urine culture shows mixed skin gudelia contamination Case management for disposition ] ATTESTATION BY PHYSICIAN I have seen and examined the patient. I reviewed the documentation, medical decision making, and treatment plan as noted by the resident provider above. I agree with the findings and plan of care. AUGUSTINE VIVEROS MD, ADIL SHAH QUADRI MD Dec 06, 2024 16:15
[2024-12-07 03:40] VITALS: BP 138/86; PULSE 67; RESP 16; TEMP 98.2
[2024-12-07 05:20] LABS: NUCLEATED RED BLOOD CELLS 0.0 % (0.0-0.19); PLATELET COUNT (AUTO) 245 K/uL (130-400); RED BLOOD CELL COUNT(AUTO) 6.56 MIL/uL (4.00-5.50); RED CELL DISTRIBUTION WIDTH 19.0 % (11.0-15.5); WHITE BLOOD COUNT (AUTO) 8.9 K/uL (4.8-10.8)
[2024-12-07 05:36] LABS: CREATININE 0.7 mg/dL (0.5-1.0); GLOMERULAR FILTR. RATE CALC 98.0 mL/min (>90); GLUCOSE,RANDOM 99.0 mg/dL (70-105); SODIUM SERUM 142.0 mmol/L (136-145); UREA NITROGEN, BLOOD 12.0 mg/dL (7-18)
[2024-12-07 08:00] VITALS: BP 164/94; PULSE 63; RESP 18; TEMP 97.4
[2024-12-07 09:07] VITALS: O2SAT 97
[2024-12-07 12:00] VITALS: BP 152/77; PULSE 65; RESP 18; TEMP 97.5
--- NOTE | 2024-12-07 15:48 | HMCIMG ---
EXAM: CR Abdomen, 2 View. CLINICAL HISTORY: Nausea, Epigastric pain, H/o SBO COMPARISON: None provided. FINDINGS: BOWEL: The bowel gas pattern is within normal limits. PERITONEUM/SOFT TISSUES: No free air evident. No pathologic appearing calcification. BONES: No acute osseous abnormality. IMPRESSION: The bowel gas pattern is within normal limits. /[place]
[2024-12-07 16:58] VITALS: BP 152/99; PULSE 62; RESP 18; TEMP 97.7
[2024-12-07] MEDS: 0.9%NACL 1000ML 1,000 ML IV SCH (17:17)
--- NOTE | 2024-12-07 17:22 | PN ---
[facility] PROGRESS NOTE Date of Service: Dec 07, 2024 Time of Service: 17:00 SUBJECTIVE: [ ] Patient is 59 years old female with a past medical history of right ankle fracture dislocation s/p reduction and splinting 2019, hypertension, hyperlipidemia, gastritis, depression, anxiety, gastric bypass with a revision, tubal ligation tonsillectomy and multiple cosmetic skin removal, who came to emergency department with a complaint of nausea, vomiting and severe abdominal pain. Patient stated that yesterday at about 2:00 p.m. she had a dinner which include Lantus, potatoes, califlowe and beeg. After that she has been failing really well until the moment around midnight when she woke up feeling " off ". Patient was also complaining of anxiety severe stomach pain sweatiness and she was not able to sleep. Urinary morning she also had persistent nausea and vomiting. The abdominal pain became very dull, strong that she was not able to so she decided to come to the hospital for further evaluation/recommendation. Most recent vital signs temperature 98.6 pulse 80 respirations 16 blood pressure 181/98 patient is on room air satting 96%. WBC 11.4 hemoglobin 13.9 hematocrit 44.6 platelets 215. UA negative for leukocytosis. Sodium 138 potassium 4.3 CO2 24 BUN 19 creatinine 1.0 GFR was 64 random glucose 140 calcium 9.4 troponin negative x1 lipase 33.X-ray abdomen negative.CT abdomen/pelvis shows small bowel obstructio with transition point left abdominal anastomosis. Multiple ventral hernias. Cholelithiasis. Gallbladder distended. Moderate T 10 wedge compression fracture. Severe L3/L4 disc height loss. 12/06/2024: Patient seen and evaluated at bedside in room 310. Case discussed with RN, no acute overnight events. CT abdomen pelvis showed small-bowel obstruction with transition point left abdomen anastomosis. Patient says that she is feeling better now and she has passed large formed stools yesterday night and today morning, she is passing flatus. General surgery consulted, no emergent surgical intervention needed at this point of time and cleared to start on liquid diet and then advance to soft solid diet. 12/07/2024: Patient seen and evaluated at bedside in room 310. Patient says that she had a horrible night yesterday, was unable to sleep due to malfunctioning IV stand. She complains of nausea, epigastric pain, dizziness, back pain. She says that she is having pain when she is eating, resolved after eating. She did not have bowel movements or passed gas after 6:00 a.m. this morning, repeat chest x-ray on 12/07/2024 shows bowel gas pattern is within normal limits. Patient is having social issues, she is saying that there is no one to pick her up from hospital and her home keys are with someone else. We will contact case management to help with safe disposition of patient back to home. REVIEW OF SYSTEMS CONSTITUTIONAL: Denies fevers, chills, or night sweats. No unintentional weight loss reported. NEUROLOGICAL: Denies headache, amaurosis fugax, motor weakness, sensory deficit, vertigo/spinning sensation, gait abnormalities, or tremors. ENT: No hearing loss, otalgia, otorrhea, rhinitis, rhinorrhea, hoarseness, or sore throat. CARDIOVASCULAR: Denies any exertional angina, dyspnea on exertion, orthopnea, paroxysmal nocturnal dyspnea, palpitations, life-threatening arrhythmias, claudication. PULMONARY: Denies any shortness of breath, cough, phlegm/sputum, hemoptysis, pleuritic chest pain. SLEEP: Denies morning headaches, daytime somnolence or napping. Denies difficulty falling asleep, staying asleep, waking from sleep. Denies knowledge of snoring. GASTROINTESTINAL: Denies any type of dysphagia to either liquids or solids. Denies pyrosis, early satiety, diarrhea, constipation, or changes in stool consistency or caliber. Denies coffee-ground emesis, hematemesis, hematochezia, or melanotic stools. Severe abdominal pain with nausea and vomiting GENITOURINARY: Denies frequency, urgency, nocturia, hematuria or incontinence (Storage/Irritative symptoms.) Low urinary stream, straining to void, urinary intermittency or hesitancy, splitting of the voiding stream, terminal dribbling. ENDOCRINOLOGIC: Denies polyuria, polydipsia, polyphagia or heat/cold intolerances. HEMATOLOGIC: Denies thrombophilia/previous clots, or coagulopathy/bleeding disorders. ONCOLOGIC: Denies personal history of malignancy. DERMATOLOGIC: Denies rashes or pruritus. PSYCHIATRIC: Denies any suicidal or homicidal ideation. Denies hallucinations. PHYSICAL EXAM GENERAL APPEARANCE: The patient is awake, alert, and oriented, in no acute cardiopulmonary distress. NEUROLOGICAL: Cranial nerves II-XII grossly intact. Motor is 5/5 in bilateral upper and lower extremities proximal to distal. No sensory deficits. HEENT: Face is symmetric. Pupils are equal and reactive. Extraocular movements are intact. NECK: Supple. No JVD. No thyromegaly. No submental, submandibular, pre- /postauricular, occipital or supraclavicular lymphadenopathy. CHEST: Normal chest expansion. No Telemetry. LUNGS: Absence of any rales, rhonchi or any wheezing. CARDIOVASCULAR: Regular. S1 and S2 normal. No appreciable rubs, murmurs or gallops. ABDOMEN: Soft, nontender, and nondistended. There is no rebound, voluntary guarding, or rigidity. : Deferred. No Salazar. EXTREMITIES: Non-edematous and not cyanotic. No clubbing. Good capillary refill. SKIN: No skin breakdown. Vital Signs (last 8hr) Date Time Temp Pulse Resp B/P (MAP) Pulse Ox O2 Delivery O2 Flow Rate FiO2 12/07/24 16:58 97.7 62 18 152/99 96 Room Air 12/07/24 12:00 97.5 65 18 152/77 96 Room Air 12/07/24 09:37 63 164/94 LABS: Laboratory: Test 12/07/24 15:32 12/07/24 04:51 12/06/24 05:00 Range/Units Whole Blood Glucose 116 H 70-110 MG/DL White Blood Count 8.9 4.8-10.8 K/uL Red Blood Count 6.56 H 4.00-5.50 MIL/uL Hemoglobin 13.3 12.0-16.0 g/dL Hematocrit 43.3 36-48 % Mean Corpuscular Volume 66.0 L 79-99 fL Mean Corpuscular Hemoglobin 20.3 L 27.0-33.0 pg Mean Corpuscular Hemoglobin Concent 30.7 L 32.0-36.0 g/dL Red Cell Distribution Width 19.0 H 11.0-15.5 % Platelet Count 245 # 130-400 K/uL Mean Platelet Volume 7.5-10.5 fL Nucleated Red Blood Cells 0.0 0.0-0.19 % Sodium Level 142 136-145 mmol/L Potassium Level 3.9 3.5-5.1 mmol/L Chloride Level 104 101-111 mmol/L Carbon Dioxide Level 30 21-32 mmol/L Blood Urea Nitrogen 12 7-18 mg/dL Creatinine 0.7 0.5-1.0 mg/dL Glomerular Filtration Rate Calc 98 >90 mL/min Random Glucose 99 70-105 mg/dL Total Calcium 9.3 8.5-10.1 mg/dL Immature Granulocyte % (Auto) 0.7 0-1 % Neutrophils (%) (Auto) 69.7 40.0-77.0 % Lymphocytes (%) (Auto) 20.1 L 21.0-51.0 % Monocytes (%) (Auto) 7.0 3.0-13.0 % Eosinophils (%) (Auto) 2.1 0.0-8.0 % Basophils (%) (Auto) 0.4 0.0-5.0 % Neutrophils # (Auto) 5.2 1.8-7.7 K/uL Lymphocytes # (Auto) 1.5 1.0-4.8 K/uL Monocytes # (Auto) 0.5 0.1-1.0 K/uL Eosinophils # (Auto) 0.16 0.00-0.70 K/uL Basophils # (Auto) 0.03 0.00-0.20 K/uL Absolute Immature Granulocyte (auto 0.05 0-1 K/uL Lactic Acid Level 0.9 0.8-2.5 mmol/L Magnesium Level 2.50 H 1.80-2.40 mg/dL Total Bilirubin 0.6 0.2-1.0 mg/dL Direct Bilirubin 0.1 0.0-0.3 mg/dL Aspartate Amino Transf (AST/SGOT) 47 H 10-37 U/L Alanine Aminotransferase (ALT/SGPT) 46 12-78 U/L Alkaline Phosphatase 67 50-136 U/L Ammonia 15 11-32 umol/L Total Creatine Kinase 42 # 21-232 U/L B-Type Natriuretic Peptide 69 0-100 pg/mL Total Protein 6.7 6.0-8.3 g/dL Albumin 3.5 3.5-5.0 g/dL Amylase Level 33 25-115 U/L Lipase 34 16-77 U/L Procalcitonin 0.17 0.05-0.5 ng/mL Thyroid Stimulating Hormone (TSH) 2.11 0.36-3.74 uIU/mL Free Thyroxine (T4) Direct 0.98 0.76-1.46 ng/dL Free Triiodothyronine (T3) pg/mL 2.19 2.18-3.98 pg/mL Current Medications Medications (Trade) Dose Ordered Sig/Musa Route PRN Reason Start Time Stop Time Status Last Admin Dose Admin Acetaminophen (TYLenol 325MG TAB) 650 mg Q4H PRN PO MILD PAIN (1-3) 12/05/24 11:30 01/04/25 11:29 Acetaminophen (TYLenol 325MG TAB) 650 mg Q6H PRN PO MILD PAIN (1-3) 12/05/24 11:30 12/05/24 11:31 DC Acetaminophen (TYLenol 325MG TAB) 650 mg Q6H PRN PO TEMPERATURE GREATER THAN 101.5 12/05/24 11:30 01/04/25 11:29 Al Hydroxide/Mg Hydroxide (MAALox PLUS 30ML) 30 ml Q6H PRN PO INDIGESTION 12/05/24 11:30 01/04/25 11:29 Amlodipine Besylate (NorvASC 5MG TAB) 10 mg DAILY PO 12/08/24 09:00 01/07/25 08:59 Atorvastatin Calcium (LIPItor 40MG) 40 mg HS PO 12/07/24 15:00 01/06/25 14:59 Dextrose (D50w) 50 ml AD PRN IV HYPOGLYCEMIA PROTOCOL 12/05/24 11:30 01/04/25 11:29 Diphenhydramine HCl (BENAdryl INJ) 25 mg Q6H PRN IV SEVERE ITCHING/RASH 12/05/24 11:30 01/04/25 11:29 Famotidine (Pepcid 20mg Vial) 20 mg BID IV 12/05/24 21:00 01/04/25 20:59 12/07/24 09:08 20 MG Famotidine (Pepcid 20mg Vial) 20 mg BID PRN IV NAUSEA/VOMITING 12/05/24 11:30 12/05/24 11:31 DC Glucagon (Glucagon 1mg Kit) 1 mg AD PRN IM HYPOGLYCEMIA PROTOCOL 12/05/24 11:30 01/04/25 11:29 Guaifenesin/ Dextromethorphan (RobiTUSSin DM 200/20MG 10ML) 10 ml Q4H PRN PO COUGH 12/05/24 11:30 01/04/25 11:29 Heparin Sodium (Porcine) (HEParin 5,000 UNIT VIAL) 5,000 unit BID SQ 12/05/24 21:00 01/04/25 20:59 12/07/24 09:15 5,000 UNIT Hydralazine HCl (APRESOLine 20MG INJ) 10 mg Q6H PRN IV For:SBP above 160;DBP above 90 12/05/24 11:30 01/04/25 11:29 12/07/24 09:37 10 MG Hydromorphone HCl (DiLAUDid 1MG INJ) 1 mg ONCE STAT IVP 12/05/24 08:06 12/05/24 08:09 DC 12/05/24 08:17 1 MG Ibuprofen (moTRIN) 800 mg Q8H PRN PO MODERATE PAIN (4-6) 12/05/24 11:30 01/04/25 11:29 12/06/24 20:31 800 MG Insulin Human Regular (humuLIN R 100 UNIT/ML 3ML) INSULIN SLIDING SCAL... ACHS SQ 12/05/24 11:30 01/04/25 11:29 Ketorolac Tromethamine (toRADol) 15 mg Q8H PRN IV MODERATE PAIN (4-6) IF NPO 12/05/24 11:30 12/05/24 12:38 DC Lactated Ringer's (Lactated Ringers 1000ml) 1,000 ml BOLUS STAT IV 12/05/24 05:34 12/05/24 05:40 DC 12/05/24 05:53 1,000 ML Lactulose (Constulose 20gm/ 30ml Udcup) 20 gm BID PRN PO CONSTIPATION 12/05/24 11:30 01/04/25 11:29 Losartan Potassium (CozAAR 50 mg TAB) 50 mg DAILY PO 12/07/24 15:00 01/06/25 14:59 Magnesium Sulfate 50 ml @ 0 mls/hr PROTOCOL PRN IV other 12/05/24 11:30 01/04/25 11:29 Metoprolol Tartrate (loprESSOR) 12.5 mg BID PO 12/05/24 21:00 01/04/25 20:59 12/07/24 09:07 12.5 MG Morphine Sulfate (morPHINE 4MG SYG) 1 mg Q4H PRN IVP SEVERE PAIN (7-10) IF NPO 12/05/24 12:00 12/12/24 11:59 12/07/24 09:38 1 MG Nitroglycerin (Nitrostat) 0.4 mg PROTOCOL PRN SL CHEST PAIN 12/05/24 11:30 01/04/25 11:29 Ondansetron HCl (zoFRAN 4MG INJ) 4 mg Q6H PRN IV NAUSEA/VOMITING 12/05/24 11:30 01/04/25 11:29 Oxycodone/ Acetaminophen (perCOCET) 1 tab Q6H PRN PO SEVERE PAIN (7-10) 12/05/24 11:30 12/05/24 12:39 DC Pantoprazole Sodium (PROTonix 40MG TAB) 40 mg DAILY PO 12/06/24 09:00 12/05/24 12:41 DC Piperacillin Sod/ Tazobactam Sod (Zosyn 3.375gm+NS 50ml) 3.375 gm Q8H IV 12/05/24 13:00 12/06/24 11:06 DC 12/06/24 04:24 3.375 GM Potassium Chloride 100 ml @ 100 mls/hr AD PRN IV POTASSIUM PROTOCOL 12/05/24 11:30 01/04/25 11:29 Potassium Chloride (K-Dur/Klor-Con 20meq) 20 meq AD PRN PO POTASSIUM PROTOCOL 12/05/24 11:30 01/04/25 11:29 Potassium Chloride (KCl 10% Elixir 20meq/15ml) 20 meq AD PRN PO POTASSIUM PROTOCOL 12/05/24 11:30 01/04/25 11:29 Ropinirole HCl (REquip) 2 mg BID PO 12/05/24 21:00 01/04/25 20:59 12/07/24 09:07 2 MG Sertraline HCl (ZOloft 50 mg tab) 100 mg DAILY PO 12/06/24 09:00 01/05/25 08:59 12/07/24 09:08 100 MG Sodium Chloride 1,000 ml @ 75 mls/hr [id number] IV 12/05/24 11:30 12/07/24 14:53 DC 12/07/24 12:05 75 MLS/HR Sodium Chloride 1,000 ml @ 75 mls/hr [id number] IV 12/07/24 15:30 01/06/25 15:29 Zolpidem Tartrate (AmbIEN) 5 mg HS PRN PO INSOMNIA 12/05/24 11:30 01/04/25 11:29 DIAGNOSTICS / RADIOLOGY: [ ] [place] [address] [place] [address] IMAGING REPORT Signed PATIENT: NINI PAREDES MR#: [id number] : 1965 SEX: F AGE: 59 LOCATION: 3BH ORDER 46 STATUS: ADM IN REPORT#: [id number] SERVICE 42 REASON: Nausea, Epigastric pain, H/o SBO ORDERING PHYSICIAN: NORIS MADERA MD PROCEDURE: ABD 1VW - ABD 1VW EXAM: CR Abdomen, 2 View. CLINICAL HISTORY: Nausea, Epigastric pain, H/o SBO COMPARISON: None provided. FINDINGS: BOWEL: The bowel gas pattern is within normal limits. PERITONEUM/SOFT TISSUES: No free air evident. No pathologic appearing calcification. BONES: No acute osseous abnormality. IMPRESSION: The bowel gas pattern is within normal limits. /[place] DICTATED BY: KAMERON WARD MD DATE: 12/07/241646 ELECTRONICALLY SIGNED BY: KAMERON WARD MD DATE: 12/07/241646 ASSESSMENT: [ Acute small-bowel obstruction per CT abdomen/pelvis POA Multiple ventral hernia per CT abdomen/pelvis POA Cholelithiasis per CT abdomen/pelvis POA Moderate T10 wedge compression fracture per CT abdomen/pelvis POA Severe L3/L4 disc height loss per CT abdomen/pelvis POA Atelectasis per CT abdomen/pelvis POA Nondisplaced fracture 5th metatarsal per foot x-ray POA Mild osteopenia per foot x-ray POA Acute dehydration POA History of the right ankle dislocation s/p reduction and splinting 11/16/2019 Uncontrolled hypertension Leukocytosis WBC 11.4 POA Multifactorial anemia POA Hyperlipidemia POA Gastritis POA Depression POA Anxiety POA History of gastric bypass History of gastric bypass reversion History of tubal ligation History of multiple skin removal cosmetic History of tonsillectomy ] PLAN: Acute small-bowel obstruction per CT abdomen/pelvis POA -CT abdomen/pelvis shows small bowel obstruction with transition point left abdominal anastomosis -patient passed large formed stools yesterday night and this morning, passing flatus. -surgery consulted, no emergent surgical interventions needed -started on soft solid diet, tolerating well -x-ray abdomen on 12/07/2024 shows bowel gas pattern is within normal limits Gastritis POA -patient is having long history of gastritis and is taking pantoprazole at home -she is receiving Pepcid 20 mg b.i.d. now Patient Complaining of severe pain this morning and received morphine 1 g IV p.r.n. Normal saline at 75 mL/hour Heparin prophylaxis Zosyn discontinued as lab workup showed no signs of infection. Hyper hypoglycemia protocol Hypokalemia protocol Hypomagnesemia protocol Urine culture shows mixed skin gudelia contamination Case management for disposition ] ATTESTATION BY PHYSICIAN I have seen and examined the patient. I reviewed the documentation, medical decision making, and treatment plan as noted by the resident provider above. I agree with the findings and plan of care. AUGUSTINE VIVEROS MD, ADIL SHAH QUADRI MD Dec 07, 2024 17:22
[2024-12-07 20:06] VITALS: BP 145/93; PULSE 64; RESP 20; TEMP 98
[2024-12-08] VITALS: BP 127/78; PULSE 64; RESP 18; TEMP 97.9
[2024-12-08 04:11] VITALS: BP 143/73; PULSE 59; RESP 18; TEMP 98
[2024-12-08 04:45] LABS: NUCLEATED RED BLOOD CELLS 0.0 % (0.0-0.19); PLATELET COUNT (AUTO) 192 K/uL (130-400); RED BLOOD CELL COUNT(AUTO) 6.27 MIL/uL (4.00-5.50); RED CELL DISTRIBUTION WIDTH 18.6 % (11.0-15.5); WHITE BLOOD COUNT (AUTO) 9.1 K/uL (4.8-10.8)
[2024-12-08 04:57] LABS: CREATININE 0.8 mg/dL (0.5-1.0); GLOMERULAR FILTR. RATE CALC 84.0 mL/min (>90); GLUCOSE,RANDOM 131.0 mg/dL (70-105); SODIUM SERUM 140.0 mmol/L (136-145); UREA NITROGEN, BLOOD 14.0 mg/dL (7-18)
[2024-12-08 08:00] VITALS: BP 153/94; PULSE 63; RESP 18; TEMP 98.2
[2024-12-08] MEDS: amLODIPine 5 MG TAB PO SCH (08:15)
[2024-12-08 08:16] VITALS: O2SAT 96
[2024-12-08] MEDS ORDERED: DICYCLOMINE HCL 10 MG/5 ML ML PO ONE (10:30)
[2024-12-08 12:00] VITALS: BP 169/97; PULSE 60; RESP 18; TEMP 97.6
[2024-12-08] MEDS: LIDOCAINE HCL 2% VISCOUS 15 ML UDCUP PO ONE (12:14)
[2024-12-08] MEDS: MAG/ALUM/SIMETH 30 ML UDCUP PO ONE (12:14)
[2024-12-08] MEDS ORDERED: MAG-55 PO (13:15)
--- NOTE | 2024-12-08 14:06 | DS ---
Discharge Summary Hospital Course Summary: Patient is 59 years old female with a past medical history of right ankle fracture dislocation s/p reduction and splinting 2020, hypertension, hyperlipidemia, gastritis, depression, anxiety, gastric bypass with a revision, tubal ligation tonsillectomy and multiple cosmetic skin removal, who came to emergency department with a complaint of nausea, vomiting and severe abdominal pain. Patient stated that yesterday at about 2:00 p.m. she had a dinner which include Lantus, potatoes, califlowe and beeg. After that she has been failing really well until the moment around midnight when she woke up feeling " off ". Patient was also complaining of anxiety severe stomach pain sweatiness and she was not able to sleep. Urinary morning she also had persistent nausea and vomiting. The abdominal pain became very dull, strong that she was not able to so she decided to come to the hospital for further evaluation/recommendation. Most recent vital signs temperature 98.6 pulse 80 respirations 16 blood pressure 181/98 patient is on room air satting 96%. WBC 11.4 hemoglobin 13.9 hematocrit 44.6 platelets 215. UA negative for leukocytosis. Sodium 138 potassium 4.3 CO2 24 BUN 19 creatinine 1.0 GFR was 64 random glucose 140 calcium 9.4 troponin negative x1 lipase 33. X-ray abdomen negative. Foot x-ray showed nondisplaced fracture 5th metatarsal with a soft tissue edema. Mild osteopenia. CT abdomen/pelvis shows small bowel obstruction with transition point left abdominal anastomosis. Multiple ventral hernias. Cholelithiasis. Gallbladder distended. Moderate T 10 wedge comp ression fracture. Severe L3/L4 disc height loss. Atelectasis. 2D echo pending During evaluation nurse practitioner explained to the patient results of CT abdomen/pelvis regarding the compression fracture and severe disc height loss. Patient stated that she has been having problems with her back since she was at age of 13. She does not want to have any market intelligence consultant to be consulted for above- stated problem. Patient was started on NPO, normal saline at 100 mL per her, GI prophylaxis with Pepcid 20 mg b.i.d. IV, heparin 5000 units b.i.d., Zosyn was started. Patient started having large formed stools next morning, x-ray showed no obstruction. Clear liquid diet was started and advanced to soft solid diet. Zosyn was stopped due to no signs of infection. Patient was evaluated this morning and found hemodynamically stable to discharge. 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 [place] [address] CONSULT NOTE: Consulting physician: Dr. Fisher Consulting service: General surgery Reason for consultation: Small bowel obstruction with multiple ventral hernia History of present illness: This is a 59-year-old female with a medical history listed below that has been consulted to surgery after presenting to the hospital with concerns of abdominal discomfort associated with nausea and vomiting. Patient with significant surgical history with previous episodes similar to current presentation. Upon initial concerns patient presented to the hospital for further evaluation where multiple hernias noted and concerns for possible small bowel obstruction seen. Since admission patient has not been nauseous. No episodes of nausea or vomiting. Patient also with no need for NG tube at this time. Patient remains NPO. On physical exam no significant abdominal pain but palpable hernia noted Medical history: Hypertension, hyperlipidemia, gastritis, depression, anxiety PAST SURGICAL HISTORY: Gastric bypass, revision of gastric bypass, tubal ligation, cosmetic skin removal multiple, tonsillectomy PAST SOCIAL HISTORY: Patient denies smoking. Patient denies any drug illicit. Patient stated that she drinks occasionally FAMILY HISTORY: Patient is independent. Patient lives at home alone Coded Allergies: bupropion (Unverified Allergy, Unknown, 07/09/18) latex (Unverified Allergy, Unknown, 11/16/19) lisinopril (Unverified Allergy, Unknown, 07/09/18) Review of systems: General: No Fever, No Chills, No Night Sweats, No Fatigue, No Malaise, No Appetite, No Other HEENT: No Head Aches, No Visual Changes, No Eye Pain, No Ear Pain, No Dysphasia, No Sinus Congestion, No Post Nasal Drip, No Sore Throat, No Other Pulmonary: No Dyspnea, No Cough, No Pleuritic Chest Pain, No Other Cardiovascular: No: Chest Pain, Palpitations, Orthopnea, Paroxysmal No Dyspnea, Edema, Lt Headedness, Other Gastrointestinal: No: Nausea, Vomiting, Diarrhea, Constipation, Melena, Hematochezia, Other Genitourinary: No Dysuria, No Frequency, No Incontinence, No Hematuria, No Retention, No Other Musculoskeletal: No: other, neck pain, shoulder pain, arm pain, back pain, hand pain, leg pain, foot pain Skin: No Urticaria, No Rash, No Other Neurological: No: Weakness, Numbness, Incoordination, Change in speech, Confusion, Seizures, Other Physical exam: GENERAL APPEARANCE: The patient is awake, alert, and oriented, in no acute cardiopulmonary distress. NEUROLOGICAL: Cranial nerves II-XII grossly intact. Motor is 5/5 in bilateral upper and lower extremities proximal to distal. No sensory deficits. HEENT: Face is symmetric. Pupils are equal and reactive. Extraocular movements are intact. NECK: Supple. No JVD. No thyromegaly. No submental, submandibular, pre- /postauricular, occipital or supraclavicular lymphadenopathy. CHEST: Normal chest expansion. No Telemetry. LUNGS: Absence of any rales, rhonchi or any wheezing. CARDIOVASCULAR: Regular. S1 and S2 normal. No appreciable rubs, murmurs or gallops. ABDOMEN: Soft, nontender, and nondistended. There is no rebound, voluntary guarding, or rigidity. Laparotomy incision with concerning hernia notable : Deferred. No Salazar. EXTREMITIES: Non-edematous and not cyanotic. No clubbing. Good capillary refill. SKIN: No skin breakdown. Assessment: This is a 59-year-old female with concerns of small bowel obstruction with multiple ventral wall hernias Plan: This point in time we will continue with conservative management No immediate need for NG tube at this time If patient begins with flatus consideration for commencement of clear liquids Patient becomes nauseous NG tube may need to be inserted Repeat KUB tomorrow No immediate surgical intervention at this time Dr. Tate to be updated in patient's status and surgical team to follow patient closely Surgical case has been discussed with my supervising physician in the above plan was formulated and agreed upon Supervising physicians evaluation the patient be done within next 24 hours We appreciate the hospitalist team for us to participate in patient's care. Greater than 55 minutes of time spent patient, reviewing chart, working on documentation AFSHIN FLETCHER Jr. Dec 05, 2024 17:24 Electronically Signed by: EMILY WILSON Jr., EMILY12/05/24 2528 Electronically Co-Signed by: PROGRESS NOTES Name: NINI PAREDES Acct: [id number] MR: [id number] : 1965 Admit Date: 12/05/24 DANIEL XIAO [facility] [address] [place] [address] GENERAL SURGERY PROGRESS NOTE Date/Time Patient Seen: [ 12/06/2024 11:30 AM] Problem List: [ 59-year-old female with possible small bowel obstruction] Interval History: [Patient states she has doing significantly better Patient states she had a large formed bowel movements last night and this morning KUB done today was normal, no obstruction WBCs 7.5 H&H 12.0 and 40.3] Current Medications Medications (Trade) Dose Ordered Sig/Musa Route Start Time Stop Time Status Last Admin Dose Admin Famotidine (Pepcid 20mg Vial) 20 mg BID IV 12/05/24 21:00 01/04/25 20:59 12/06/24 09:40 20 MG Heparin Sodium (Porcine) (HEParin 5,000 UNIT VIAL) 5,000 unit BID SQ 12/05/24 21:00 01/04/25 20:59 12/06/24 09:40 5,000 UNIT Hydromorphone HCl (DiLAUDid 1MG INJ) 1 mg ONCE STAT IVP 12/05/24 08:06 12/05/24 08:09 DC 12/05/24 08:17 1 MG Insulin Human Regular (humuLIN R 100 UNIT/ML 3ML) INSULIN SLIDING SCAL... ACHS SQ 12/05/24 11:30 01/04/25 11:29 Lactated Ringer's (Lactated Ringers 1000ml) 1,000 ml BOLUS STAT IV 12/05/24 05:34 12/05/24 05:40 DC 12/05/24 05:53 1,000 ML Metoprolol Tartrate (loprESSOR) 12.5 mg BID PO 12/05/24 21:00 01/04/25 20:59 12/05/24 20:28 12.5 MG Pantoprazole Sodium (PROTonix 40MG TAB) 40 mg DAILY PO 12/06/24 09:00 12/05/24 12:41 DC Piperacillin Sod/ Tazobactam Sod (Zosyn 3.375gm+NS 50ml) 3.375 gm Q8H IV 12/05/24 13:00 12/06/24 11:06 DC 12/06/24 04:24 3.375 GM Ropinirole HCl (REquip) 2 mg BID PO 12/05/24 21:00 01/04/25 20:59 12/05/24 20:28 2 MG Sertraline HCl (ZOloft 50 mg tab) 100 mg DAILY PO 12/06/24 09:00 01/05/25 08:59 Sodium Chloride 1,000 ml @ 75 mls/hr [id number] IV 12/05/24 11:30 01/04/25 11:29 12/06/24 04:24 100 MLS/HR Physical Examination: GENERAL: [No acute distress, female, comfortably resting in bed.] HEAD: [Normocephalic.] EYES: [Normal conjunctiva.] ENT: [Hearing grossly intact.] NECK: [Supple.] LUNGS: [Clear breath sounds bilaterally.] HEART: [Normal rate and rhythm.] VASC: [Peripheral pulses +2 bilaterally.] ABD: [Bowel sounds normal, soft, nontender, no guarding or rigidity.] : [Not examined] EXT: [No edema.] SKIN: [No rashes or lesions noted.] NEURO: [Awake, alert, and oriented x3. No focal sensory or strength deficits noted.] Vital Signs (last 8hr) Date Time Temp Pulse Resp B/P (MAP) Pulse Ox O2 Delivery O2 Flow Rate FiO2 12/06/24 11:34 98.4 64 16 129/74 99 Room Air 12/06/24 07:51 98.2 59 18 150/85 97 Room Air Laboratory: [ ] Hematology Labs: Test 12/06/24 05:00 12/05/24 05:29 Range/Units White Blood Count 7.5 # 4.8-10.8 K/uL Red Blood Count 6.05 H 4.00-5.50 MIL/uL Hemoglobin 12.0 12.0-16.0 g/dL Hematocrit 40.8 36-48 % Mean Corpuscular Volume 67.4 L 79-99 fL Mean Corpuscular Hemoglobin 19.8 L 27.0-33.0 pg Mean Corpuscular Hemoglobin Concent 29.4 L 32.0-36.0 g/dL Red Cell Distribution Width 18.8 H 11.0-15.5 % Platelet Count 164 130-400 K/uL Mean Platelet Volume 7.5-10.5 fL Immature Granulocyte % (Auto) 0.7 0-1 % Neutrophils (%) (Auto) 69.7 40.0-77.0 % Lymphocytes (%) (Auto) 20.1 L 21.0-51.0 % Monocytes (%) (Auto) 7.0 3.0-13.0 % Eosinophils (%) (Auto) 2.1 0.0-8.0 % Basophils (%) (Auto) 0.4 0.0-5.0 % Neutrophils # (Auto) 5.2 1.8-7.7 K/uL Lymphocytes # (Auto) 1.5 1.0-4.8 K/uL Monocytes # (Auto) 0.5 0.1-1.0 K/uL Eosinophils # (Auto) 0.16 0.00-0.70 K/uL Basophils # (Auto) 0.03 0.00-0.20 K/uL Absolute Immature Granulocyte (auto 0.05 0-1 K/uL Nucleated Red Blood Cells 0.0 0.0-0.19 % Red Blood Cell Morphology See comments Chemistry Labs: Test 12/06/24 11:26 12/06/24 05:00 12/05/24 05:29 Range/Units Whole Blood Glucose 117 H 70-110 MG/DL Sodium Level 141 136-145 mmol/L Potassium Level 4.1 3.5-5.1 mmol/L Chloride Level 104 101-111 mmol/L Carbon Dioxide Level 29 21-32 mmol/L Blood Urea Nitrogen 15 7-18 mg/dL Creatinine 0.7 0.5-1.0 mg/dL Glomerular Filtration Rate Calc 98 >90 mL/min Random Glucose 107 H 70-105 mg/dL Lactic Acid Level 0.9 0.8-2.5 mmol/L Total Calcium 8.2 L 8.5-10.1 mg/dL Magnesium Level 2.50 H 1.80-2.40 mg/dL Total Bilirubin 0.6 0.2-1.0 mg/dL Direct Bilirubin 0.1 0.0-0.3 mg/dL Aspartate Amino Transf (AST/SGOT) 47 H 10-37 U/L Alanine Aminotransferase (ALT/SGPT) 46 12-78 U/L Alkaline Phosphatase 67 50-136 U/L Ammonia 15 11-32 umol/L Total Creatine Kinase 42 # 21-232 U/L B-Type Natriuretic Peptide 69 0-100 pg/mL Total Protein 6.7 6.0-8.3 g/dL Albumin 3.5 3.5-5.0 g/dL Amylase Level 33 25-115 U/L Lipase 34 16-77 U/L Procalcitonin 0.17 0.05-0.5 ng/mL Thyroid Stimulating Hormone (TSH) 2.11 0.36-3.74 uIU/mL Free Thyroxine (T4) Direct 0.98 0.76-1.46 ng/dL Free Triiodothyronine (T3) pg/mL 2.19 2.18-3.98 pg/mL Hemoglobin A1c 5.4 4.0-6.0 % Estimated Average Glucose (eAG) 108 70-126 mg/dL Troponin I High Sensitivity 5 4-50 ng/L Diagnostics / Radiology: [address] [address] IMAGING REPORT Signed PATIENT: NINI PAREDES MR#: [id number] : 1965 SEX: F AGE: 59 LOCATION: 3BH ORDER 1017 STATUS: ADM IN REPORT#: [id number] SERVICE 1016 REASON: SBO ORDERING PHYSICIAN: DANIEL XIAO PROCEDURE: ABD 1VW - ABD 1VW EXAM: CR Abdomen, 2 View. CLINICAL HISTORY: SBO COMPARISON: None provided. FINDINGS: BOWEL: The bowel gas pattern is within normal limits. There is abundant colonic fecal matter that may reflect constipation. PERITONEUM/SOFT TISSUES: No free air evident. No pathologic appearing calcification. BONES: No aggressive appearing osseous lesion seen. IMPRESSION: The bowel gas pattern is within normal limits. /[place] DICTATED BY: EARLINE TRAYLOR Jr., MD DATE: 12/06/241214 ELECTRONICALLY SIGNED BY: EARLINE TRAYLOR Jr., MD DATE: 12/06/241214 Impression and Plan: [59-year-old female with resolved small bowel obstruction Patient had a large formed bowel movement this morning and has been passing gas Abdomen is soft, nondistended and nontender From surgical standpoint, no emergent surgical intervention at this time Patient may be started on clear liquids and advance diet as tolerated Patient may be discharged home when cleared by hospitalist Patient instructed on increasing her dietary fiber and water intake Surgical team will sign off case for now Dr. Tate updated on patient's status Surgical case has been discussed with my supervising physician Plan of care was formulated and agreed upon We appreciate the hospitalist team for allowing us to participate in this patient's care Greater than 45 minutes spent examining patient, reviewing chart and working on documentation ATTESTATION BY PHYSICIAN I have seen and examined the patient. I reviewed the documentation, medical decision making, and treatment plan as noted by the mid-level provider above. I agree with the findings and plan of care. MD NINOSKA AVELAR LETICIA A [facility] Dec 06, 2024 14:52 Electronically Signed by: DANIEL XIAO [facility] 1452 Electronically Co-Signed by: Procedure(s): [address] [address] IMAGING REPORT Signed PATIENT: NINI PAREDES MR#: [id number] : 1965 SEX: F AGE: 59 LOCATION: [facility] ORDER 2 STATUS: REG ER REPORT#: [id number] SERVICE REASON: emesis ORDERING PHYSICIAN: EMBER BARRON MD PROCEDURE: ABD 1VW - ABD 1VW EXAM: CR Abdomen, 1 view. CLINICAL HISTORY: Emesis COMPARISON: Prior CT abdomen and pelvis dated May 04, 2019 FINDINGS: Mildly elevated right hemidiaphragm, probable right diaphragmatic eventration. Non obstructed nonspecific bowel gas pattern. No free air is evident. No abnormal calcification. No aggressive appearing osseous lesion. IMPRESSION: No acute process. No obstructive bowel gas pattern. /[place] DICTATED BY: EARLINE TRAYLOR Jr., MD DATE: 12/05/24747 ELECTRONICALLY SIGNED BY: EARLINE TRAYLOR Jr., MD DATE: 12/05/[address] [place] [id number] IMAGING REPORT Signed PATIENT: NINI PAREDES MR#: [id number] : 1965 SEX: F AGE: 59 LOCATION: [facility] ORDER 0 STATUS: REG REPORT#: [id number] SERVICE 8 REASON: trauma, r/o fracture ORDERING PHYSICIAN: EMBER BARRON MD PROCEDURE: FT 3VW RT - FOOT COMP 3+VWS RT EXAM: CR right Foot, 3 views. CLINICAL HISTORY: Trauma rule out fracture. COMPARISON: None provided. FINDINGS: Faint transverse lucency at the base of the fifth metatarsal is consistent with a nondisplaced fracture with mild associated soft tissue edema. Mild osteopenia. A compression plate and screws in the distal metaphyseal end of the fibula and a cancellous screw in the medial malleolus of the tibia for prior fracture fixation. Mild degenerative changes in the tibiotalar, talofibular, intertarsal, tarsometatarsal, metatarsophalangeal, and interphalangeal joints. No aggressive appearing osseous lesion. IMPRESSION: Faint transverse lucency at the base of the fifth metatarsal is consistent with a nondisplaced fracture with mild associated soft tissue edema. Mild osteopenia. A compression plate and screws in the distal metaphyseal end of the fibula and a cancellous screw in the medial malleolus of the tibia for prior fracture fixation. Mild degenerative changes in the tibiotalar, talofibular, intertarsal, tarsometatarsal, metatarsophalangeal, and interphalangeal joints. /[place] DICTATED BY: EARLINE TRAYLOR Jr., MD DATE: 12/05/24836 ELECTRONICALLY SIGNED BY: EARLINE TRAYLOR Jr., MD DATE: 12/05/24836 [place] [address] [address] IMAGING REPORT Addendum PATIENT: NINI PAREDES MR#: [id number] : 1965 SEX: F AGE: 59 LOCATION: [facility] ORDER 3 STATUS: REG ER REPORT#: [id number] SERVICE 2 REASON: diffuse abdominal pain ORDERING PHYSICIAN: PARDEEP MARTINEZ MD PROCEDURE: ABD PELVWO - CT ABD/PEL WO CON RENAL/APPY ADDENDUM REPORT ADDENDUM: Results were shared by telephone at 10:37 am on 12/05/24 and acknowledged by Pardeep Posada /[place] EXAM: CT Abdomen and Pelvis Without IV contrast CLINICAL HISTORY: diffuse abdominal pain TECHNIQUE: Axial computed tomography images of the abdomen and pelvis without intravenous contrast. CONTRAST: No IV contrast. COMPARISON: None provided. FINDINGS: LUNG BASES: Bibasilar subsegmental atelectasis. LIVER: Unremarkable. GALLBLADDER AND BILE DUCTS: Cholelithiasis. Distended gallbladder. PANCREAS: Unremarkable. SPLEEN: Unremarkable. ADRENAL GLANDS: Unremarkable. KIDNEYS, URETERS, AND BLADDER: The kidneys appear within normal limits. There is no hydronephrosis or hydroureter. No urinary calculi are seen. STOMACH AND BOWEL: There are postoperative changes of the stomach. Multiple ventral wall hernias containing fat. One of the hernias contains the antimesenteric surface of the transverse colon. There is a small bowel obstruction with a transition point at the level of an anastomosis within the left abdomen. APPENDIX: No evidence of acute appendicitis on CT examination. PERITONEUM: No free fluid. No free air. LYMPH NODES: No lymphadenopathy is evident. REPRODUCTIVE: Unremarkable as visualized. VASCULATURE: Aortic atherosclerosis noted. BONES: Moderate wedge compression fracture of T10. Severe loss of disc height at L3/L4. IMPRESSION: 1. Small bowel obstruction with transition point at left abdominal anastomosis. 2. Multiple ventral wall hernias, including one containing transverse colon. 3. Cholelithiasis with gallbladder distension. 4. Moderate T10 wedge compression fracture. 5. Severe L3/L4 disc height loss. 6. Postoperative changes of the stomach. 7. Bibasilar subsegmental atelectasis. 8. Aortic atherosclerosis. /[place] DICTATED BY: EARLINE TRAYLOR Jr., MD DATE: 12/05/24 1142 ELECTRONICALLY SIGNED BY: DATE: EXAM: CT Abdomen and Pelvis Without IV contrast CLINICAL HISTORY: diffuse abdominal pain TECHNIQUE: Axial computed tomography images of the abdomen and pelvis without intravenous contrast. CONTRAST: No IV contrast. COMPARISON: None provided. FINDINGS: LUNG BASES: Bibasilar subsegmental atelectasis. LIVER: Unremarkable. GALLBLADDER AND BILE DUCTS: Cholelithiasis. Distended gallbladder. PANCREAS: Unremarkable. SPLEEN: Unremarkable. ADRENAL GLANDS: Unremarkable. KIDNEYS, URETERS, AND BLADDER: The kidneys appear within normal limits. There is no hydronephrosis or hydroureter. No urinary calculi are seen. STOMACH AND BOWEL: There are postoperative changes of the stomach. Multiple ventral wall hernias containing fat. One of the hernias contains the antimesenteric surface of the transverse colon. There is a small bowel obstruction with a transition point at the level of an anastomosis within the left abdomen. APPENDIX: No evidence of acute appendicitis on CT examination. PERITONEUM: No free fluid. No free air. LYMPH NODES: No lymphadenopathy is evident. REPRODUCTIVE: Unremarkable as visualized. VASCULATURE: Aortic atherosclerosis noted. BONES: Moderate wedge compression fracture of T10. Severe loss of disc height at L3/L4. IMPRESSION: 1. Small bowel obstruction with transition point at left abdominal anastomosis. 2. Multiple ventral wall hernias, including one containing transverse colon. 3. Cholelithiasis with gallbladder distension. 4. Moderate T10 wedge compression fracture. 5. Severe L3/L4 disc height loss. 6. Postoperative changes of the stomach. 7. Bibasilar subsegmental atelectasis. 8. Aortic atherosclerosis. /[place] DICTATED BY: MELI KING MD DATE: 12/05/24 102 ELECTRONICALLY SIGNED BY: MELI KING MD DATE: 12/05/24 102 [place] [address] [address] IMAGING REPORT Signed PATIENT: NINI PAREDES MR#: [id number] : 1965 SEX: F AGE: 59 LOCATION: [facility] ORDER 25 STATUS: ADM IN REPORT#: [id number] SERVICE 19 REASON: chf ORDERING PHYSICIAN: ANA SAEED APRN PROCEDURE: ECHO CMP - ECHO 2-D COMPLETE APPROVED REPORT EXAM: Two-dimensional and M-mode echocardiogram with Doppler and color Doppler. INDICATION ICD: Congestive heart failure 2D Dimensions RVDd 4.1 cm LVEF(%) 64.2 (>50%) LVED Vol(simp.) 58.3 mL IVSd 1.0 (0.7-1.1cm) FS(%) 35 % LVES Vol(simp.) 17.8 mL LVDd 4.1 (3.8-5.6cm) LA (2D) 3.1 (1.6-4.0cm) LVEF(%, simp.) 69 % PWd 0.8 (0.7-1.1cm) Ao Root(2D) 2.9 (2.0-3.7cm) IVSs 1.0 cm LVOT diam 1.9 (1.8-2.4cm) LVDs 2.7 (2.5-4.0cm) IVC diam 1.6 cm PWs 1.4 cm Deformation Strain Apical 4 -17.6 % Apical 2 -15.9 % Apical 3 -21.5 % Global Strain -18.3 % M-Mode Dimensions EPSS 0.3 cm LA (MM) 3.2 (1.6-4.0cm) Ao Root(MM) 3.0 (2.0-3.7cm) Aortic Valve AoV Vmax 3.2 m/s Ao Peak GR 40.4 mmHg LVOT Vmax 1.2 m/s AoV VTI 0.6 m Ao Mean GR 22.0 mmHg LVOT VTI 0.25 m GREGORY (VMAX) 1.10 cm2 GREGORY (VTI) 1.1 cm2 Mitral Valve MV E Vmax 82.1 cm/s DECEL Time 182 ms MV A Vmax 105.4 cm/s P 1/2 T 80 ms E/A ratio 0.8 MVA (PHT) 2.8 cm2 TDI E/E' Medial 12.1 E/E' Lateral 10.8 Medial E' Peak V 6.80 cm/s Lateral E' Peak V 7.57 cm/s Pulmonary Valve PV Vmax 1.1 m/s PV VTI 0.23 m PV Mean GR 3.0 mmHg PV Peak GR 4.5 mmHg Tricuspid Valve TR Vmax 2.1 m/s RAP (EST) 3 mmHg RVSP 22.0 mmHg TR Peak GR 19.0 mmHg Left Ventricle The left ventricle is normal size. No regional wall motion abnormalities noted. Mild concentric left ventricular hypertrophy. Left ventricular systolic function is normal, estimated LVEF is 55 to 60%. Stage I diastolic dysfunction. Right Ventricle The right ventricle is normal size. The right ventricular systolic function is normal. Atria The left atrium size is normal. The right atrium size is normal. Aortic Valve Aortic valve is probably trileaflet. The leaflets are thickened and calcified. Trace aortic regurgitation. Moderate aortic stenosis: Peak velocity 3.2 m/s, mean gradient 22 mmHg, GREGORY 1.1cm2. Mitral Valve The mitral valve is normal in structure. The leaflets are mildly thickened and calcified. Trace mitral regurgitation. There is no mitral valve stenosis. Tricuspid Valve The tricuspid valve is normal in structure. Trace tricuspid regurgitation. RVSP is 19 mmHg. Pulmonic Valve Pulmonic valve is not well visualized. Great Vessels The aortic root is normal in size. The IVC is normal in size and collapses >50% with inspiration. Pericardium There is no pericardial effusion. Other Information Quality : Technically difficult study due to body habitus Conclusion Mild concentric left ventricular hypertrophy. No regional wall motion abnormalities noted. Left ventricular systolic function is normal, estimated LVEF is 55 to 60%. Stage I diastolic dysfunction. Moderate aortic stenosis: Peak velocity 3.2 m/s, mean gradient 22 mmHg, GREGORY 1.1cm2. Trace aortic regurgitation. Trace mitral regurgitation. Trace tricuspid regurgitation. PASP is 22 mmHg. There is no pericardial effusion. DICTATED BY: CHRISTOPHER COLON MD DATE: 12/05/24 1318 ELECTRONICALLY SIGNED BY: CHRISTOPHER COLON MD DATE: 12/06/24 0040 [place] [id number] [place] [id number] IMAGING REPORT Signed PATIENT: NINI PAREDES MR#: [id number] : 1965 SEX: F AGE: 59 LOCATION: 3BH ORDER 1017 STATUS: ADM IN REPORT#: [id number] SERVICE 1016 REASON: SBO ORDERING PHYSICIAN: DANIEL XIAO PROCEDURE: ABD 1VW - ABD 1VW EXAM: CR Abdomen, 2 View. CLINICAL HISTORY: SBO COMPARISON: None provided. FINDINGS: BOWEL: The bowel gas pattern is within normal limits. There is abundant colonic fecal matter that may reflect constipation. PERITONEUM/SOFT TISSUES: No free air evident. No pathologic appearing calcification. BONES: No aggressive appearing osseous lesion seen. IMPRESSION: The bowel gas pattern is within normal limits. /[place] DICTATED BY: EARLINE TRAYLOR Jr., MD DATE: 12/06/242 ELECTRONICALLY SIGNED BY: EARLINE TRAYLOR Jr., MD DATE: 12/06/24 0422 [place] [id number] [id number] IMAGING REPORT Signed PATIENT: NINI PAREDES MR#: [id number] : 1965 SEX: F AGE: 59 LOCATION: 3BH ORDER 1047 STATUS: ADM IN REPORT#: [id number] SERVICE 1049 REASON: Nausea, Epigastric pain, H/o SBO ORDERING PHYSICIAN: NORIS MADERA MD PROCEDURE: ABD 1VW - ABD 1VW EXAM: CR Abdomen, 2 View. CLINICAL HISTORY: Nausea, Epigastric pain, H/o SBO COMPARISON: None provided. FINDINGS: BOWEL: The bowel gas pattern is within normal limits. PERITONEUM/SOFT TISSUES: No free air evident. No pathologic appearing calcification. BONES: No acute osseous abnormality. IMPRESSION: The bowel gas pattern is within normal limits. /[place] DICTATED BY: KAMERON WARD MD DATE: 12/07/241646 ELECTRONICALLY SIGNED BY: KAMERON WARD MD DATE: 12/07/241646 Assessment/Plan: ASSESSMENT: [ Acute small-bowel obstruction per CT abdomen/pelvis POA Multiple ventral hernia per CT abdomen/pelvis POA Cholelithiasis per CT abdomen/pelvis POA Moderate T10 wedge compression fracture per CT abdomen/pelvis POA Severe L3/L4 disc height loss per CT abdomen/pelvis POA Atelectasis per CT abdomen/pelvis POA Nondisplaced fracture 5th metatarsal per foot x-ray POA Mild osteopenia per foot x-ray POA Acute dehydration POA History of the right ankle dislocation s/p reduction and splinting 11/16/2019 Uncontrolled hypertension Leukocytosis WBC 11.4 POA Multifactorial anemia POA Hyperlipidemia POA Gastritis POA Depression POA Anxiety POA History of gastric bypass History of gastric bypass reversion History of tubal ligation History of multiple skin removal cosmetic History of tonsillectomy ] Discharge Instructions: Resume soft diet and gradually advance as tolerated. Avoid spicy, oily, citrus, tomato-based, and caffeinated foods/drinks. Eat small frequent meals and avoid lying down within 2 hours after eating. Discontinue any NSAIDs, aspirin, or other gastric irritants. Maintain adequate hydration. Primary Care Physician within 1 week Gastroenterology within 24 weeks for evaluation of persistent GERD and ulcer history with Dr. Castro Landa. Orthopedic- F/up within a week for the management of compression fracture. Visit the nearest emergency department or call 911 if you experience hemetemesis, abdominal pain, fever or any emergency symptoms that requires urgent evaluation Home Medications: Active Scripts Mag Hydrox/Al Hydrox/Simeth (Maalox Maximum Strength Susp) 400 Mg-400 Mg-40 Mg/5 Ml Oral.susp, 20 ML PO Q6HPRN PRN for GI UPSET/UPSET STOMACH for 5 Days, #355 ML 0 Refills Prov:NORIS MADERA MD 12/08/24 Pantoprazole Sodium (Protonix) 40 Mg Tablet., 40 MG PO DAILY for 30 Days, #30 TAB Prov:GRACIA RAMOS MD 05/08/19 Reported Medications Prednisolone Acetate (Pred Forte 1% Ophth Susp) 1 % Opsus, 1 DROP OU 5XDAY 12/05/24 Progesterone,Micronized (Progesterone) 100 Mg Capsule, 1 CAP PO HS 12/05/24 Atorvastatin Calcium (Atorvastatin Calcium) 40 Mg Tablet, 1 TAB PO HS for cholesterol 12/05/24 Amlodipine Besylate (Amlodipine Besylate) 10 Mg Tablet, 1 TAB PO DAILY 12/05/24 [Gabapentin] 300 MG No Conflict Check, BID 12/05/24 Losartan Potassium (Losartan Potassium) 50 Mg Tablet, 1 TAB PO DAILY 12/05/24 Tramadol Hcl (Tramadol HCl) 50 Mg Tablet, 1 TAB PO TIDP PRN for PAIN 12/05/24 Alprazolam (Alprazolam) 0.5 Mg Tablet, 1 TAB PO BID PRN for panic attack 12/05/24 Sertraline HCl (Sertraline HCl) 100 Mg Tablet, 1 TAB PO DAILY 11/16/19 Discontinued Reported Medications Ropinirole HCl (Ropinirole HCl) 1 Mg Tablet, 1 MG PO DAILY PRN for RESTLESSNESS, TAB 05/06/19 Ropinirole HCl (Ropinirole HCl) 2 Mg Tablet, 2 MG PO BID, TAB 05/06/19 Discontinued Scripts Methylprednisolone (Medrol) 4 Mg Tab.ds.pk, 1 TAB PO AD for 6 Days, #21 TAB 0 Refills 6 on day 1 then reduce by one tablet daily until gone Prov:MARCUS VAN RESPIRATORY SUPPORT TECHNICIAN 12/19/23 Ibuprofen (Ibuprofen 800 mg Tab) 800 Mg Tab, 800 MG PO Q8H PRN for fever or pain, #30 TAB 0 Refills Prov:MARCUS VAN RESPIRATORY SUPPORT TECHNICIAN 12/19/23 Cyclobenzaprine HCl (Cyclobenzaprine HCl) 10 Mg Tablet, 1 TAB PO TID for muscle spasms for 10 Days, #30 TAB 0 Refills Prov:MARCUS VAN RESPIRATORY SUPPORT TECHNICIAN 12/19/23 Naproxen (Naproxen) 375 Mg Tablet.dr, 375 MG PO BID for 7 Days, #14 TAB Prov:HARITHA OH MD 02/19/22 Metoprolol Tartrate (Lopressor) 25 Mg Tab, 12.5 MG PO BID for 30 Days, #60 TAB Prov:GRACIA RAMOS MD 05/08/19 New Medications: Mag Hydrox/Al Hydrox/Simeth (Maalox Maximum Strength Susp) 400 Mg-400 Mg-40 Mg/5 Ml Oral.susp 20 ML PO Q6HPRN PRN for GI UPSET/UPSET STOMACH for 5 Days, #355 ML 0 Refills Continued Medications: Alprazolam (Alprazolam) 0.5 Mg Tablet 1 TAB PO BID PRN for panic attack Amlodipine Besylate (Amlodipine Besylate) 10 Mg Tablet 1 TAB PO DAILY Atorvastatin Calcium (Atorvastatin Calcium) 40 Mg Tablet 1 TAB PO HS for cholesterol [Gabapentin] () 300 MG BID Losartan Potassium (Losartan Potassium) 50 Mg Tablet 1 TAB PO DAILY Pantoprazole Sodium (Protonix) 40 Mg Tablet.dr 40 MG PO DAILY for 30 Days, #30 TAB Prednisolone Acetate (Pred Forte 1% Ophth Susp) 1 % Opsus 1 DROP OU 5XDAY Progesterone,Micronized (Progesterone) 100 Mg Capsule 1 CAP PO HS Sertraline HCl (Sertraline HCl) 100 Mg Tablet 1 TAB PO DAILY Tramadol Hcl (Tramadol HCl) 50 Mg Tablet 1 TAB PO TIDP PRN for PAIN Time spent arranging discharge: 1-30 minutes ATTESTATION BY PHYSICIAN I have seen and examined the patient. I reviewed the documentation, medical decision making, and treatment plan as noted by the resident provider above. I agree with the findings and plan of care. AUGUSTINE VIVEROS MD, ADIL SHAH QUADRI MD Dec 08, 2024 14:06
--- NOTE | 2024-12-08 18:46 | NUR ---
DISCHARGE DISCHARGED HOME, TAKE MEDICATIONS PRESCRIBED, FOLLOW MD RECOMMENDATIONS.
== END 2024-12-08 15:30 | disposition home or self-care (01) | DRG 445 ==
LOC: EDH 05:16 → EDHIP 11:20 → 3BH 15:08
PROVIDERS: ADMIT Internal Medicine; ATTEND Internal Medicine
DX: K80.20 Calculus of gallbladder without cholecystitis without obstruction (principal); J98.11 Atelectasis; K56.609 Unspecified intestinal obstruction, unspecified as to partial versus complete obstruction; S22.070A Wedge compression fracture of T9-T10 vertebra, initial encounter for closed fracture; K43.9 Ventral hernia without obstruction or gangrene; E86.0 Dehydration; S92.354A Nondisplaced fracture of fifth metatarsal bone, right foot, initial encounter for closed fracture; M85.80 Other specified disorders of bone density and structure, unspecified site; D72.829 Elevated white blood cell count, unspecified; D64.9 Anemia, unspecified; K29.70 Gastritis, unspecified, without bleeding; F41.9 Anxiety disorder, unspecified; F32.A Depression, unspecified; E78.5 Hyperlipidemia, unspecified; I70.0 Atherosclerosis of aorta; X58.XXXA Exposure to other specified factors, initial encounter; I35.0 Nonrheumatic aortic (valve) stenosis; E78.00 Pure hypercholesterolemia, unspecified; I11.0 Hypertensive heart disease with heart failure; I50.9 Heart failure, unspecified; Z90.49 Acquired absence of other specified parts of digestive tract; Z98.51 Tubal ligation status; Z98.84 Bariatric surgery status; Y93.89 Activity, other specified; Y92.89 Other specified places as the place of occurrence of the external cause; Y99.8 Other external cause status
CPT/HCPCS: 36415; 73630; 74018; 74176; 80048; 80076; 81003; 82140; 82150; 82550; 82948; 83036; 83605; 83690; 83735; 83880; 84145; 84439; 84443; 84481; 84484; 85025; 85027; 87086; 87426; 87804; 93005; 93306; 93356; 96361; 96374; 96375; 99285; G0378; J0360; J1171; J1644; J2270; J2405; J2543; J7030; J7120; Q9963; J1308